=== PATIENT | female | born 1935 | race Caucasian/White ===

== ENCOUNTER 2017-11-20 09:42 | Inpatient (IN) | payer OTHER ==
[~2017-11-20] VITALS: Ht 170.2 cm; Wt 78.5 kg
[~2017-11-20 09:42] MED LIST: ACETAMINOPHEN-1 EAC1 PO; AMLODIPINE BESYL5 M1 PO; AUGMENTIN 875-1 EACH PO; CARVEDILOL3.125 M1 PO; CEPHALEXIN500 M3 PO; LEVOTHYROXINE112 MCG PO; PRADAXA75 M1 PO
--- NOTE | 2017-11-20 10:09 | ED GENERAL ADULT ---
History of Present Illness General Chief Complaint: Altered Mental Status Stated Complaint: BIBA INCREASED AMS Source: old records, EMS, friend Exam Limitations: dementia Vital Signs & Intake/Output Vital Signs & Intake/Output Vital Signs Date Time Temp Pulse Resp B/P B/P Pulse O2 O2 Flow FiO2 Mean Ox Delivery Rate 11/20 1019 96.6 60 20 133/88 91 Room Air Allergies Coded Allergies: shellfish derived (Intermediate, HIVES 08/17/17) Reconcile Medications Acetaminophen With Codeine (Acetaminophen-Cod #2 Tablet) 300 MG-15 MG TABLET 1 TAB PO TID PAIN (Reported) Amlodipine Besylate 5 MG TABLET 1 TAB PO DAILY BP (Reported) Amoxicillin/Potassium Clav (Augmentin 875-125 Tablet) 875 MG-125 MG TABLET 1 TAB PO BID CELLULITIS Carvedilol 3.125 MG TABLET 1 TAB PO BID HEART/BP (Reported) Cephalexin 500 MG CAPSULE 1 CAP PO BID ANTIBIOTIC (Reported) Dabigatran (Pradaxa) 75 MG CAPSULE 1 CAP PO BID BLOOD THINNER (Reported) Levothyroxine Sodium 112 MCG TABLET 1 TAB PO DAILY THYROID (Reported) Triage Note: 82 YO FEAMLE BIBA TO TRIAGE FOR INCRASE IN CONFUSION PER EMS. PER EMS, FAMILY STATES OT HAS A HX OF DEMENTIA BUT OVER THE PAST COUPLE OF DAYS HAS BEEN MORE CONFUSED WITH AN UNSTEADY GAIT. PT ALERT TO SELF ONLY AT THIS TIME. PT DENIES PAIN. Triage Nurses Notes Reviewed? yes HPI: Patient lives at home alone but her friends come over to assist her as much as they can. They've noticed increasing weakness and confusion over the past 2-3 days. This morning she was in the bathroom and all of a sudden I out for help, which is very unusual for her. Patient would not move so 911 Was Contacted. Patient Has Dementia and Has No Current Complaints. Patient Does Not Know Why She Is Here. Past History Travel History Traveled to [place] past 21 day No Medical History Any Pertinent Medical History? see below for history Neurological: dementia EENT: NONE Cardiovascular: AFIB, hypertension Respiratory: NONE Gastrointestinal: NONE Hepatic: NONE Renal: NONE Musculoskeletal: NONE Psychiatric: NONE Endocrine: hypothyroidism Blood Disorders: NONE Cancer(s): NONE Surgical History Surgical History: non-contributory Psychosocial History What is your primary language Syrian Tobacco Use: Cognitive Impairment ETOH Use: denies use Illicit Drug Use: denies illicit drug use Family History Hx Contributory? No Review of Systems Review of Systems Constitutional: Reports: see HPI, weakness. Physical Exam Physical Exam General Appearance: well developed/nourished, awake, mild distress Head: evidence of injury Eyes: Bilateral: PERRL, EOMI. Ears, Nose, Throat: normal pharynx, normal ENT inspection, hearing grossly normal Neck: normal inspection, supple, full range of motion, no midline tenderness Respiratory: normal breath sounds, chest non-tender, no respiratory distress, lungs clear Cardiovascular: normal peripheral pulses, irregularly irregular Gastrointestinal: normal bowel sounds, soft, non-tender Back: normal inspection Extremities: normal capillary refill, normal range of motion, bruises in various stages of healing Neurologic/Psych: no motor/sensory deficits, awake, normal gait, normal mood/ affect Skin: intact, normal color, warm/dry Lymphatic: no anterior cervical baljeet Core Measures ACS in differential dx? Yes CVA/TIA Diagnosis: No Sepsis Present: No Sepsis Focused Exam Completed? No Progress Differential Diagnoses I considered the following diagnoses in my evaluation of the patient: [AMI, ELECTROLYTE ABORMALITY, SDH] Plan of Care: Orders Procedure Date/time Status Heart Healthy Diet 11/20 D Active LACTIC ACID 11/20 1323 Active ED Holding Orders 11/20 1230 Active Admit to inpatient 11/20 1230 Active Vital Signs 11/20 1230 Active Code Status 11/20 1230 Active ARTERIAL BLOOD GAS (GEN) 11/20 1141 Complete Straight Cath 11/20 1023 Active CULTURE,URINE 11/20 1023 Active BLOOD CULTURE 11/20 1023 Active URINALYSIS 11/20 1023 Active TROPONIN LEVEL 11/20 1023 Complete LIPASE 11/20 1023 Complete LACTIC ACID 11/20 1023 Complete COMPREHENSIVE METABOLIC PANEL 11/20 1023 Complete CBC WITHOUT DIFFERENTIAL 11/20 1023 Complete AMYLASE 11/20 1023 Complete EKG 11/20 1023 Active Current Medications Sig/Angela Start time Last Medication Dose Stop Time Status Admin Sodium Chloride 1,000 ML BOLUS ONE 11/20 1145 AC (Normal Saline 0.9%) 11/20 1244 Laboratory Tests 11/20/17 1200: pH 7.42, pCO2 30 L, pO2 77 L, HCO3 19 L, ABG O2 Sat (Measured) 93.0 L, Carboxyhemoglobin 0.6 L, O2 Concentration % RA, Phlebotomy Draw Site RIGHT RADIAL 11/20/17 1030: Anion Gap 17 H, Estimated GFR 19 L, BUN/Creatinine Ratio 14.2, Glucose 157 H, Lactic Acid 5.5 H, Calcium 8.6, Total Bilirubin 0.9, AST 21, ALT 20, Alkaline Phosphatase 57, Troponin I 0.02, Total Protein 6.4, Albumin 3.4 L, Globulin 3.0 , Albumin/Globulin Ratio 1.1, Amylase 37, Lipase 77, CBC w Diff NO MAN DIFF REQ, RBC 2.99 L, MCV 99.9 H, MCH 33.5 H, MCHC 33.5, RDW 14.4, MPV 12.5 H, Gran % 79.9 H, Lymphocytes % 10.9 L, Monocytes % 8.3, Eosinophils % 0.4, Basophils % 0.5, Absolute Granulocytes 5.6, Absolute Lymphocytes 0.8 L, Absolute Monocytes 0.6, Absolute Eosinophils 0, Absolute Basophils 0 Microbiology 11/20 1148 BLOOD: Blood Culture - RECD 11/20 1023 URINE ROUT: Urine Culture - ORD 11/20 1023 BLOOD: Blood Culture - ORD Diagnostic Imaging: Viewed by Me: Radiology Read, CT Scan. Discussed w/RAD: Radiology Read, CT Scan. Radiology Impression: PATIENT: MAISHA WATTERS PRESENT AGE: 82 PATIENT ACCOUNT NO: [id number] : 34 LOCATION: [facility] ORDERING PHYSICIAN: Luis Alberto Pickens MD SERVICE DATE: 11/20/17 EXAM TYPE: CAT - CT CERV SPINE WO IV CONTRAST; CT HEAD WO IV CONTRAST EXAMINATION: CT HEAD WITHOUT CONTRAST CLINICAL INFORMATION: Fall, confusion. COMPARISON: None. TECHNIQUE: Contiguous axial imaging was performed from the skull base to vertex without intravenous administration of contrast. DLP: 595.71 mGy-cm FINDINGS: No evidence of acute intracranial hemorrhage or extra-axial fluid collection. Marked periventricular white matter hypodensities are nonspecific but most likely on the basis of chronic small vessel ischemic disease versus transependymal CSF flow. No definite acute territorial infarction. The ventricles are dilated, slightly out of proportion to the sulcal prominence. The ventricles are symmetric and there is no evidence of mass effect or mass lesion. Basal cisterns are patent. Limited views of the orbits are unremarkable. The calvarium is intact. Limited views of the paranasal sinuses are unremarkable. Mastoid air cells are well aerated and middle ear cavities are clear. Calcification of the cavernous carotid arteries. IMPRESSION: 1. No acute intracranial pathology. 2. Markedly dilated ventricles without proportional sulcal dilatation suggestive there may be some degree of normal pressure hydrocephalus. There are periventricular white matter hypodensities which could be on the basis of transependymal CSF flow versus chronic microvascular ischemic disease. ---- EXAMINATION: CT CERVICAL SPINE WITHOUT CONTRAST CLINICAL INFORMATION: Fall COMPARISON: None. TECHNIQUE: Contiguous axial imaging was performed from the skull base to the thoracic inlet without intravenous administration of contrast. DLP: 365.62 mGy-cm. FINDINGS: Vertebral bodies are normal in height and alignment. Degenerative changes are worst at the C5-C6 level with subchondral cyst formation and endplate sclerosis. Small anterior degenerative osteophytes throughout the cervical spine. Uncovertebral spurring throughout the cervical spine, worst at the C4-C5, C5-C6 and C6-C7 levels. Degenerative disc disease is moderately severe at C5-C6. Facet joints are anatomically aligned bilaterally with some scattered degenerative change. The atlantodens intervals within normal limits. The atlantooccipital junction is unremarkable. The dens process is intact. C1 and C2 are well aligned. Limited views of the lung apices demonstrate centrilobular emphysematous changes. Stable small focus of architectural distortion at the right apex measuring 0.5 cm (75/82). Stable focus of architectural distortion along the lateral right apex. There is a focal 0.5 cm area of more solid consolidation associated with this focus which appears more prominent when compared with prior studies. 1.9 cm ground-glass opacity at the medial left apex may represent volume averaging from the thoracic aortic arch which is likely coming into view at this level; however, considering the underlying centrilobular emphysematous changes, a focus of ground-glass opacity of the lung parenchyma is not excluded. IMPRESSION: 1. No radiographic evidence of acute fractures or subluxations. 2. Multiple findings within the lungs as detailed above. Dedicated chest CT is recommended, especially in this high-risk patient with emphysema. 3. Degenerative changes as above. DICTATED BY: Kim Zafar MD DATE/TIME DICTATED:11/20/171137 WOOD FLOUR MILLER:ARNOLD DATE/TIME TRANSCRIBED:11/20/171137 CONFIDENTIAL, DO NOT COPY WITHOUT APPROPRIATE AUTHORIZATION. <Electronically signed in Other Vendor System> SIGNED BY: Kmi Zafar MD 11/20/17 1222 CXR Impression: PATIENT: MAISHA WATTERS PRESENT AGE: 82 PATIENT ACCOUNT NO: [id number] : 34 LOCATION: [facility] ORDERING PHYSICIAN: Luis Alberto Pickens MD SERVICE DATE: 11/20/17 EXAM TYPE: RAD - XRY-PORTABLE CHEST XRAY EXAMINATION: XR PORTABLE CHEST CLINICAL INFORMATION: Pneumonia COMPARISON: Chest CT 11/27/2012, chest radiograph 07/03/2012 TECHNIQUE : Portable frontal view of the chest was obtained. FINDINGS: No focal consolidation, pleural effusion or pneumothorax. Cardiomegaly, increased since the prior studies. Atherosclerosis thoracic aorta. No acute osseous abnormality. IMPRESSION: No acute pulmonary process. Increased cardiomegaly. DICTATED BY: Kim Zafar MD DATE/TIME DICTATED:11/20/171117 WOOD FLOUR MILLER:ARNOLD DATE/TIME TRANSCRIBED:11/20/171117 CONFIDENTIAL, DO NOT COPY WITHOUT APPROPRIATE AUTHORIZATION. <Electronically signed in Other Vendor System> SIGNED BY: Kim Zafar MD 11/20/17 1123 Initial ED EKG: AFIB, nonspecific ST T wave chg Prior EKG: unchanged Rhythm Strip: atrial fibrillation Comments: LACTIC ACID 5.5 Departure Departure Disposition: STILL A PATIENT Condition: Guarded Clinical Impression Primary Impression: Acute renal injury Secondary Impressions: Anemia, Lactic acidosis Referrals: Ethel Gallo MD (PCP/Family) Departure Forms: Customer Survey General Discharge Information Admission Note Spoke With: Meir Christie MD Documentation of Exam: Documentation of any treatments & extenuating circumstances including Concerns Regarding Discharge (functional status, medication knowledge or non-compliance, living conditions, etc.) that warrant an admission rather than observation: [IV HYDRATION, RENAL CONSULT, NEUROLOGY CONSULT REG: HEAD CT] Critical Care Note Critical Care Note Critical Care Time: non-applicable
[2017-11-20 10:49] LABS: ABSOLUTE BASOPHIL COUNT 0 /CUMM (0.0-0.2); ABSOLUTE EOSINOPHIL COUNT 0 /CUMM (0.0-0.7); ABSOLUTE GRANULOCYTE CT 5.6 /CUMM (1.4-6.5); ABSOLUTE LYMPH COUNT 0.8 /CUMM (1.2-3.4); ABSOLUTE MONOCYTE COUNT 0.6 /CUMM (0.10-0.60); BASOPHIL % 0.5 % (0.0-2.0); EOSINOPHIL % 0.4 % (0-5); GRANULOCYTE % 79.9 % (42.2-75.2); HEMATOCRIT 29.9 % (37-47); MEAN CORPUSCULAR HGB 33.5 PG (27.0-31.0); MEAN CORPUSCULAR HGB CONC 33.5 G/DL (33.0-37.0); MEAN CORPUSCULAR VOLUME 99.9 FL (81.0-99.0); MEAN PLATELET VOLUME 12.5 FL (7.4-10.4); PLATELET COUNT 97 /CUMM (130-400); RBC DISTRIBUTION WIDTH 14.4 % (11.5-14.5); RED BLOOD CELL CT 2.99 /CUMM (4.20-5.40)
--- NOTE | 2017-11-20 11:23 | RADIOLOGY REPORT ---
EXAMINATION: XR PORTABLE CHEST CLINICAL INFORMATION: Pneumonia COMPARISON: Chest CT 11/27/2012, chest radiograph 07/03/2012 TECHNIQUE: Portable frontal view of the chest was obtained. FINDINGS: No focal consolidation, pleural effusion or pneumothorax. Cardiomegaly, increased since the prior studies. Atherosclerosis thoracic aorta. No acute osseous abnormality. IMPRESSION: No acute pulmonary process. Increased cardiomegaly.
--- NOTE | 2017-11-20 12:22 | CT SCAN REPORT ---
EXAMINATION: CT HEAD WITHOUT CONTRAST CLINICAL INFORMATION: Fall, confusion. COMPARISON: None. TECHNIQUE: Contiguous axial imaging was performed from the skull base to vertex without intravenous administration of contrast. DLP: 595.71 mGy-cm FINDINGS: No evidence of acute intracranial hemorrhage or extra-axial fluid collection. Marked periventricular white matter hypodensities are nonspecific but most likely on the basis of chronic small vessel ischemic disease versus transependymal CSF flow. No definite acute territorial infarction. The ventricles are dilated, slightly out of proportion to the sulcal prominence. The ventricles are symmetric and there is no evidence of mass effect or mass lesion. Basal cisterns are patent. Limited views of the orbits are unremarkable. The calvarium is intact. Limited views of the paranasal sinuses are unremarkable. Mastoid air cells are well aerated and middle ear cavities are clear. Calcification of the cavernous carotid arteries. IMPRESSION: 1. No acute intracranial pathology. 2. Markedly dilated ventricles without proportional sulcal dilatation suggestive there may be some degree of normal pressure hydrocephalus. There are periventricular white matter hypodensities which could be on the basis of transependymal CSF flow versus chronic microvascular ischemic disease. EXAMINATION: CT CERVICAL SPINE WITHOUT CONTRAST CLINICAL INFORMATION: Fall COMPARISON: None. TECHNIQUE: Contiguous axial imaging was performed from the skull base to the thoracic inlet without intravenous administration of contrast. DLP: 365.62 mGy-cm. FINDINGS: Vertebral bodies are normal in height and alignment. Degenerative changes are worst at the C5-C6 level with subchondral cyst formation and endplate sclerosis. Small anterior degenerative osteophytes throughout the cervical spine. Uncovertebral spurring throughout the cervical spine, worst at the C4-C5, C5-C6 and C6-C7 levels. Degenerative disc disease is moderately severe at C5-C6. Facet joints are anatomically aligned bilaterally with some scattered degenerative change. The atlantodens intervals within normal limits. The atlantooccipital junction is unremarkable. The dens process is intact. C1 and C2 are well aligned. Limited views of the lung apices demonstrate centrilobular emphysematous changes. Stable small focus of architectural distortion at the right apex measuring 0.5 cm (75/82). Stable focus of architectural distortion along the lateral right apex. There is a focal 0.5 cm area of more solid consolidation associated with this focus which appears more prominent when compared with prior studies. 1.9 cm ground-glass opacity at the medial left apex may represent volume averaging from the thoracic aortic arch which is likely coming into view at this level; however, considering the underlying centrilobular emphysematous changes, a focus of ground-glass opacity of the lung parenchyma is not excluded. IMPRESSION: 1. No radiographic evidence of acute fractures or subluxations. 2. Multiple findings within the lungs as detailed above. Dedicated chest CT is recommended, especially in this high-risk patient with emphysema. 3. Degenerative changes as above.
--- NOTE | 2017-11-20 14:09 | History & Physical ---
Shanta AREVALO,Yoselyn 11/20/17 1408: General Information and HPI MD Statement: I have seen and personally examined MAISHA WATTERS and documented this H&P. The patient is a 82 year old F who presented with a patient stated chief complaint of []. 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 Patient lives with her son friends as he was in penitentiary. She is missing him and becomes combative occasionally. Speaking with family it is evident that she was very active taking care of herself including daily activities. She acutely bacame confused in the restroom today with weakness in her legs and accidentally lost urine at that time. As she appeared more weak and confused family friends got concerned and brought her here. She usually not a complainer. In the ER she denies any chest pain, shortness of breath, nausea, vomiting, diarrhea, fevers. She denies any problems with walking, urination. She actively smokers a pack per day for the past 40yrs. Meds Pradaxa 75mg BID, Coreg 3.125mg BID, Levothyroxine 112mcg daily Allergies/Medications Allergies: Coded Allergies: shellfish derived (Intermediate, HIVES 08/17/17) Home Med list Acetaminophen With Codeine (Acetaminophen-Cod #2 Tablet) 300 MG-15 MG TABLET 1 TAB PO TID PAIN (Reported) Carvedilol 3.125 MG TABLET 1 TAB PO BID HEART/BP (Reported) Dabigatran (Pradaxa) 75 MG CAPSULE 1 CAP PO BID BLOOD THINNER (Reported) Levothyroxine Sodium 112 MCG TABLET 1 TAB PO DAILY THYROID (Reported) Compliance With Home Meds: GOOD Past History Travel History Traveled to [place] past 21 day No Medical History Neurological: dementia EENT: NONE Cardiovascular: AFIB, hypertension Respiratory: NONE Gastrointestinal: NONE Hepatic: NONE Renal: NONE Musculoskeletal: NONE Psychiatric: NONE Endocrine: hypothyroidism Blood Disorders: NONE Cancer(s): NONE Isolation History: Standard Surgical History Surgical History: non-contributory Past Family/Social History Psychosocial History Where do you live? Home Who Do You Live With? child friend Services at Home: None Primary Language: Canadian Smoking Status: Current Everyday Smoker ETOH Use: denies use Illicit Drug Use: denies illicit drug use Functional Ability ADLs Independent: dressing, eating, toileting, bathing. Ambulation: independent IADLs Needs Assist: shopping, housework, finances, food prep, telephone, transportation, medication admin. Review of Systems Review of Systems Constitutional: Reports: see HPI. EENTM: Reports: see HPI. Cardiovascular: Reports: see HPI. Respiratory: Reports: see HPI. GI: Reports: see HPI. Exam & Diagnostic Data Last 24 Hrs of Vital Signs/I&O Vital Signs Date Time Temp Pulse Resp B/P B/P Pulse O2 O2 Flow FiO2 Mean Ox Delivery Rate 11/20 1254 96.6 64 20 110/76 98 Room Air 11/20 1019 96.6 60 20 133/88 91 Room Air Intake & Output 11/20 1600 11/20 0800 11/20 0000 Intake Total 0 Output Total Balance 0 Intake, Oral 0 Physical Exam General Appearance Alert, Oriented X3, Cooperative, very dry skin Skin bruising present on right side of abdomen Skin Temp/Moisture Exam: Warm/Dry HEENT Atraumatic, PERRLA, EOMI Cardiovascular Normal S1, Normal S2 Lungs Clear to Auscultation, Normal Air Movement Abdomen Normal Bowel Sounds, Soft, No Tenderness Body Front and Back (Adult) 1) bruising present Last 24 Hrs of Labs/Kris: Laboratory Tests 11/20/171951: Lactic Acid 2.8 H, PT 49.4 *H, INR 4.46 *H, APTT 85 H, CBC w Diff NO MAN DIFF REQ, RBC 2.33 L, MCV 101.8 H, MCH 33.2 H, MCHC 32.7 L, RDW 14.5, MPV 12.7 H , Gran % 75.4 H, Lymphocytes % 13.3 L, Monocytes % 10.5 H, Eosinophils % 0.3, Basophils % 0.5, Absolute Granulocytes 5.9, Absolute Lymphocytes 1.0 L, Absolute Monocytes 0.8 H, Absolute Eosinophils 0, Absolute Basophils 0 11/20/17 1610: Lactic Acid 3.0 H, CBC w Diff NO MAN DIFF REQ, RBC 2.60 L, MCV 100.4 H, MCH 33.2 H, MCHC 33.1, RDW 14.4, MPV 12.5 H, Gran % 77.4 H, Lymphocytes % 12.6 L , Monocytes % 9.6 H, Eosinophils % 0.3, Basophils % 0.1, Absolute Granulocytes 6.4, Absolute Lymphocytes 1.1 L, Absolute Monocytes 0.8 H, Absolute Eosinophils 0, Absolute Basophils 0 11/20/17 1330: Urinalysis LIGHT H, Urine Color YEL, Urine Clarity HAZY H, Urine pH 6.0, Ur Specific Deposit 1.025, Urine Protein 30 H, Urine Ketones TRACE H, Urine Nitrite NEG, Urine Bilirubin NEG, Urine Urobilinogen 0.2, Ur Leukocyte Esterase NEG, Ur Microscopic SEDIMENT EXAMINED, Urine WBC 5-10 H, Ur Epithelial Cells MANY H, Urine Bacteria MANY H, Urine Mucus MOD H, Urine Hemoglobin NEG, Urine Glucose NEG 11/20/17 1200: pH 7.42, pCO2 30 L, pO2 77 L, HCO3 19 L, ABG O2 Sat (Measured) 93.0 L, Carboxyhemoglobin 0.6 L, O2 Concentration % RA, Phlebotomy Draw Site RIGHT RADIAL 11/20/17 1030: Anion Gap 17 H, Estimated GFR 19 L, BUN/Creatinine Ratio 14.2, Glucose 157 H, Lactic Acid 5.5 H, Calcium 8.6, Total Bilirubin 0.9, AST 21, ALT 20, Alkaline Phosphatase 57, Troponin I 0.02, Total Protein 6.4, Albumin 3.4 L, Globulin 3.0 , Albumin/Globulin Ratio 1.1, Amylase 37, Lipase 77, TSH 80.400 H, Free T4 0.07 L, CBC w Diff NO MAN DIFF REQ, RBC 2.99 L, MCV 99.9 H, MCH 33.5 H, MCHC 33.5 , RDW 14.4, MPV 12.5 H, Gran % 79.9 H, Lymphocytes % 10.9 L, Monocytes % 8.3, Eosinophils % 0.4, Basophils % 0.5, Absolute Granulocytes 5.6, Absolute Lymphocytes 0.8 L, Absolute Monocytes 0.6, Absolute Eosinophils 0, Absolute Basophils 0 Microbiology 11/20 1940 BLOOD: Blood Culture - RECD 11/20 1518 URINE ROUT: Urine Culture - CAN Cancelled: Cancelled via OE: Per MD Decision 11/20 1330 URINE ROUT: Urine Culture - RECD 11/20 1148 BLOOD: Blood Culture - RECD Diagnostic Data EKG Results A.fib with HR 60. Irregularly irregular with LAFB Assessment/Plan Assessment: Patient is a elderly 82 YO F with PMH significant for A.fib on pradaxa, GI bleed , 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 She denies any recent falls, cough, reports compliance with medications. she did have abdominal pain since the past 1day. VS stable, afebrile. PE significant for Tenderness in the RUQ region, mild edmea of the legs, very very dry skin. Labs are significant for H&H of 07/14 with MCV 99, platelets 97, BUN/Cr 24/2.4, Trop 0.02, TSH of 80, free T4 0.07. Imaging did show Large hemtoma involving the anterior & lateral chest wall extending to the pelvis with a depth of 6cm. Last ECHO in the system is 2002 with good EF 55%, LVH. Problem list Acute hematoma into the anteriror abdominal wall musculature - ? fall vs cough related vs straining due to constipation Lacitc acidosis MITRA on CKD Acute blood loss anemia A.fib Primary Hypothyrodism Acute Abdominal wall hematoma in the setting of anticoagulation Patient is not a good historian. Possiblities are she could have a fall (less likely on ventral side), increased cough (chronic smoker - smoker cough) or constipated straining causing this condition. She is hemodynamically stable. She had A.fib with CHADVaSc score of 4. * Type and cross match * Transfuse 2 untis of blood * Gen surgery consulted - no role of surgery given it is within the muscular wall Lacitic acidosis with MITRA on CKD Patient did have elevated lactic probably from internal bleeding. Agressively hydrated. Acute worsening of renal function could be from dehydration or volume depletion. * IV fluids * Recheck BEP in am Hypothyroidism She is hypothermic with dry skin, reports generalized weakness and fatigue. She did have anemia. She is reportedly compliant with medications - it is possible she might have difficulty absorbing levothyroxine. Her TSH is 80 with T4 of 0.07. She could have constipation secondary to this leading to hematoma while straining. Another possiblity is she might have acquired VonWillibrand disease from hypothyrodism that could have caused this but it is associated with mucosal bleeding. * Repeat TSH and free T4 * Lipid panel * Selinium level * Increase levothyroxine dose after ruling out ACS * Endo consult if mental status continuous to worsen A.fib Patient was on pradaxa. CHADVaSC score of 4. Follows . EKG shows A.fib with rate control. spoke with . * Recommended to discotinue Dabigatran in view of her bleeding * If hemodynamically unstable, consider for reversal. * Otherwise follow off anticoagulation * Continue Coreg with holding parameters DVT prophylaxis ALPS Code status full code As Ranked By This Provider Problem List: 1. Lactic acidosis 2. Acute renal injury 3. Hypothyroidism 4. Hematoma Core Measures/Misc (06/03) Acute Coronary Syndrome ACS Diagnosis: No Congestive Heart Failure Congestive Heart Failure Diagnosis No Cerebrovascular Accident CVA/TIA Diagnosis: No VTE (View Protocol) VTE Risk Factors Acute Medical Illness No Mechanical VTE Prophylaxis d/t Medical Contraindication No VTE Pharm Prophylaxis d/t Bleeding (Active) Sepsis (View protocol) Sepsis Present: No Azeb Marinelli MD 11/20/17 1555: Attending MD Review Statement Attending Statement Attending MD Statement: examined this patient, discuss w/resident/PA/HORSER UP, agreed w/resident/PA/HORSER UP, discussed with family, reviewed EMR data (avail), discussed with nursing, reviewed images, amended to note Attending Assessment/Plan: 82-year-old female with past history significant for A. fib, hypothyroidism, dementia, hypertension who was brought in by ambulance because patient was feeling very weak and somewhat confused. Patient son is in penitentiary and she currently is living with one of his son's friend along with that person's girlfriend. Apparently patient got agitated she also felt weak more than usual and appeared somewhat confused. This morning she was in the bathroom and called out for help. She would not get out of the bathroom therefore 911 was called therefore she was brought into the emergency room. In the ER patient was found to have high lactate levels, drop in H&H and acute renal failure. She was complaining of some right-sided abdominal pain and she was very tender upon palpation. There was also some bruising going on on her abdomen. Vital Signs Date Time Temp Pulse Resp B/P B/P Pulse O2 O2 Flow FiO2 Mean Ox Delivery Rate 11/20 1254 96.6 64 20 110/76 98 Room Air 11/20 1019 96.6 60 20 133/88 91 Room Air on exam; aox2, nad. cv; s1,s2, irregular. resp; clear abd; soft, tender in right uq, right flank, bs+, + big bruise on abd wall. ext; no edema. Laboratory Tests 11/20 11/20 1330 1200 Blood Gas pH (7.35 - 7.45 PH) 7.42 pCO2 (35 - 45 TORR) 30 L pO2 (80 - 100 TORR) 77 L HCO3 (21 - 28 MEQ/L) 19 L ABG O2 Sat (Measured) (>96.0 %) 93.0 L Carboxyhemoglobin (1.5 - 5.0 %) 0.6 L O2 Concentration % RA Miscellaneous Phlebotomy Draw Site RIGHT RADIAL Urines Urinalysis LIGHT H Urine Color (YEL,AMB,STR) YEL Urine Clarity (CLEAR) HAZY H Urine pH (5.0 - 8.0) 6.0 Ur Specific Deposit (1.001 - 1.035) 1.025 Urine Protein (NEG,<30 MG/DL) 30 H Urine Ketones (NEG) TRACE H Urine Nitrite (NEG) NEG Urine Bilirubin (NEG) NEG Urine Urobilinogen (0.1 - 1.0 EU/dl) 0.2 Ur Leukocyte Esterase (NEG) NEG Ur Microscopic SEDIMENT EXAMINED Urine WBC (0 - 2 /HPF) 5-10 H Ur Epithelial Cells (NONE,FEW) MANY H Urine Bacteria (NEG/NONE) MANY H Urine Mucus (FEW,NONE) MOD H Urine Hemoglobin (NEG) NEG Urine Glucose (N MG/DL) NEG 11/20 1030 Chemistry Sodium (137 - 145 mmol/L) 146 H Potassium (3.5 - 5.1 mmol/L) 4.0 Chloride (98 - 107 mmol/L) 109 H Carbon Dioxide (22 - 30 mmol/L) 20 L Anion Gap (5 - 16) 17 H BUN (7 - 17 mg/dL) 34 H Creatinine (0.5 - 1.0 mg/dL) 2.4 H Estimated GFR (>60 ml/min) 19 L BUN/Creatinine Ratio (7 - 25 %) 14.2 Glucose (65 - 99 mg/dL) 157 H Lactic Acid (0.7 - 2.1 mmol/L) 5.5 H Calcium (8.4 - 10.2 mg/dL) 8.6 Total Bilirubin (0.2 - 1.3 mg/dL) 0.9 AST (14 - 36 U/L) 21 ALT (9 - 52 U/L) 20 Alkaline Phosphatase (<127 U/L) 57 Troponin I (< 0.11 ng/ml) 0.02 Total Protein (6.3 - 8.2 g/dL) 6.4 Albumin (3.5 - 5.0 g/dL) 3.4 L Globulin (1.9 - 4.2 gm/dL) 3.0 Albumin/Globulin Ratio (1.1 - 2.2 %) 1.1 Amylase (30 - 110 U/L) 37 Lipase (23 - 300 U/L) 77 TSH (0.270 - 4.200 uIU/mL) Pending Hematology CBC w Diff NO MAN DIFF REQ WBC (4.8 - 10.8 /CUMM) 7.0 RBC (4.20 - 5.40 /CUMM) 2.99 L Hgb (12.0 - 16.0 G/DL) 10.0 L Hct (37 - 47 %) 29.9 L MCV (81.0 - 99.0 FL) 99.9 H MCH (27.0 - 31.0 PG) 33.5 H MCHC (33.0 - 37.0 G/DL) 33.5 RDW (11.5 - 14.5 %) 14.4 Plt Count (130 - 400 /CUMM) 97 L MPV (7.4 - 10.4 FL) 12.5 H Gran % (42.2 - 75.2 %) 79.9 H Lymphocytes % (20.5 - 51.1 %) 10.9 L Monocytes % (1.7 - 9.3 %) 8.3 Eosinophils % (0 - 5 %) 0.4 Basophils % (0.0 - 2.0 %) 0.5 Absolute Granulocytes (1.4 - 6.5 /CUMM) 5.6 Absolute Lymphocytes (1.2 - 3.4 /CUMM) 0.8 L Absolute Monocytes (0.10 - 0.60 /CUMM) 0.6 Absolute Eosinophils (0.0 - 0.7 /CUMM) 0 Absolute Basophils (0.0 - 0.2 /CUMM) 0 All of her imaging studies reviewed and CT head and CT cervical spine do not show any fractures. There is question of normal pressure hydrocephalus. Chest x-ray does not show any infiltrate. A/P; 82-year-old female with past history significant for A. fib, hypothyroidism , dementia, hypertension admitted with altered mental state, generalized weakness, acute blood loss anemia and acute renal failure. Patient also has high lactate levels. Patient admitted to medicine floor. We have ordered a CT abdomen and pelvis and the radiologist spoke with the housestaff with information that there is a large hematoma in the abdomenal wall. Official report is not in the computer yet. At this point patient's Pradaxa tracy be held. cardiology consult to help guide reversal if indicated. H& H will be monitored closely. Please consult surgery. If patient needs transfusion should be transfused therefore please type and cross and make sure patient has 2 large-bore IV lines. Will continue the patient on her levothyroxine and check thyroid function. Patient will be hydrated with IV fluids. Lactate will be trended. We'll continue the patient on Coreg with holding parameters. DVT prophylaxis: ALPS. Full code. Discussed with patient's son's friend at bedside.
[2017-11-20 15:40] VITALS: BP 118/80
--- NOTE | 2017-11-20 16:13 | CT SCAN REPORT ---
EXAMINATION: CT ABDOMEN AND PELVIS WITHOUT CONTRAST CLINICAL INFORMATION: Right upper quadrant pain. COMPARISON: None TECHNIQUE: Multidetector volumetric imaging was performed from the superior aspect of the liver through the pubic symphysis. Sagittal and coronal reformatted images were obtained on the technologist's workstation. DLP: 527.23 mGy-cm FINDINGS: LUNG BASES: There is a small layering right pleural effusion. Minimal dependent atelectasis subpleural lung and right lung base as well. There is a small pericardial effusion at the apex of the left ventricle. This measures 1 cm transverse axial image 3 (2). LIVER, GALLBLADDER, AND BILIARY TREE: The liver is normal in size, shape, and attenuation. No focal hepatic lesion or biliary ductal dilatation is present. The gallbladder is unremarkable with no evidence of radiopaque gallstones, gallbladder wall thickening, or obvious pericholecystic inflammatory changes. PANCREAS: Unremarkable. SPLEEN: Unremarkable. ADRENAL GLANDS: Fullness of the left adrenal gland without distinct nodule. KIDNEYS AND URETERS: There is a 1 cm cortical cyst at the mid pole cortex of the left kidney. In the lower pole left kidney, there is a 5 mm nonobstructive renal stone. There is no stone in the right kidney. There are no ureteral calculi and no hydronephrosis. BLADDER: Bladder is empty GASTROINTESTINAL TRACT: There is marked diverticulosis of the sigmoid colon and descending colon with scattered diverticula throughout the colon. There is no diverticulitis. There is no acute abnormality of the bowel. No bowel obstruction. No bowel wall thickening or edema. There is a large collection of stool at the rectum sigmoid without bowel wall edema or evidence of stercoral colitis. The appendix is normal. The small bowel loops are unremarkable. MESENTERY: A small amount of free fluid in the cul-de-sac. There is no inflammation. There is no free air. ABDOMINAL WALL: There is a large muscular wall hematoma involving the anterior and lateral abdominal wall extending into the lower chest anterior chest wall. The hematoma is seen from the lower anterior right chest over the lower anterior right ribs and extends along the right anterior and lateral abdominal wall into the pelvis. This has mixed attenuation. The large collection does bulge the mid anterior abdominal wall to a depth of 6 cm. There is associated edema in the subcutaneous tissue over the hematoma. There is no air or foreign body involving the hematoma. LYMPH NODES: There is no bulky adenopathy. VASCULAR: There is a saccular aneurysm is present of the distal aorta just proximal to the bifurcation measuring 4.2 cm AP. There are diffuse atherosclerotic vascular wall calcifications of aorta and iliac vessels. PELVIC VISCERA: The uterus is anteverted. In the left adnexa, there is an ovarian cystic lesion measuring 2.7 x 1.9 cm with a density measurement of 0 Hounsfield units, fluid density. OSSEOUS STRUCTURES: Multilevel degenerative spondylosis of the spine with vacuum disc phenomenon, endplate spurs and facet joint arthrosis. IMPRESSION: 1. Large abdominal wall hematoma involving the anterior lateral right abdominal wall extending from the right lower chest to the pelvis. 2. Small dependent right pleural effusion with minimal basilar atelectasis at the dependent right lung. 3. Nonobstructive 5 mm stone lower pole left kidney. 4. A 4.2 cm saccular abdominal aortic aneurysm with diffuse atherosclerotic vascular wall calcifications of the aorta and iliac vessels. 5. Marked diverticulosis of the colon without acute change of bowel. There is a large collection of stool at the rectum sigmoid. This critical result was discussed with Dr. Yoselyn Womack on 11/20/2017 at 3:10 PM and it was ascertained that the content and urgency of the report was understood at the time of direct communication.
[2017-11-20 17:02] LABS: ABSOLUTE BASOPHIL COUNT 0 /CUMM (0.0-0.2); ABSOLUTE EOSINOPHIL COUNT 0 /CUMM (0.0-0.7); ABSOLUTE GRANULOCYTE CT 6.4 /CUMM (1.4-6.5); ABSOLUTE LYMPH COUNT 1.1 /CUMM (1.2-3.4); ABSOLUTE MONOCYTE COUNT 0.8 /CUMM (0.10-0.60); BASOPHIL % 0.1 % (0.0-2.0); EOSINOPHIL % 0.3 % (0-5); GRANULOCYTE % 77.4 % (42.2-75.2); HEMATOCRIT 26.1 % (37-47); MEAN CORPUSCULAR HGB 33.2 PG (27.0-31.0); MEAN CORPUSCULAR HGB CONC 33.1 G/DL (33.0-37.0); MEAN CORPUSCULAR VOLUME 100.4 FL (81.0-99.0); MEAN PLATELET VOLUME 12.5 FL (7.4-10.4); PLATELET COUNT 81 /CUMM (130-400); RBC DISTRIBUTION WIDTH 14.4 % (11.5-14.5); WHITE BLOOD CELL COUNT 8.3 /CUMM (4.8-10.8)
[2017-11-20 20:46] LABS: ABSOLUTE BASOPHIL COUNT 0 /CUMM (0.0-0.2); ABSOLUTE EOSINOPHIL COUNT 0 /CUMM (0.0-0.7); ABSOLUTE GRANULOCYTE CT 5.9 /CUMM (1.4-6.5); ABSOLUTE MONOCYTE COUNT 0.8 /CUMM (0.10-0.60); BASOPHIL % 0.5 % (0.0-2.0); EOSINOPHIL % 0.3 % (0-5); GRANULOCYTE % 75.4 % (42.2-75.2); HEMATOCRIT 23.7 % (37-47); MEAN CORPUSCULAR HGB 33.2 PG (27.0-31.0); MEAN CORPUSCULAR HGB CONC 32.7 G/DL (33.0-37.0); MEAN CORPUSCULAR VOLUME 101.8 FL (81.0-99.0); MEAN PLATELET VOLUME 12.7 FL (7.4-10.4); PLATELET COUNT 74 /CUMM (130-400); RBC DISTRIBUTION WIDTH 14.5 % (11.5-14.5); RED BLOOD CELL CT 2.33 /CUMM (4.20-5.40); WHITE BLOOD CELL COUNT 7.8 /CUMM (4.8-10.8)
[2017-11-20 20:55] LABS: PTT 85 SEC (25-37)
[2017-11-20 21:07] LABS: PT 49.4 SEC (9.4-12.5)
[2017-11-20 22:05] VITALS: BP 100/65
[2017-11-20 22:41] VITALS: BP 115/70
--- NOTE | 2017-11-21 00:30 | Cons- General Surgery ---
General Information and HPI Allergies/Medications Allergies: Coded Allergies: shellfish derived (Intermediate, HIVES 08/17/17) Home Med List: Acetaminophen With Codeine (Acetaminophen-Cod #2 Tablet) 300 MG-15 MG TABLET 1 TAB PO TID PAIN (Reported) Carvedilol 3.125 MG TABLET 1 TAB PO BID HEART/BP (Reported) Dabigatran (Pradaxa) 75 MG CAPSULE 1 CAP PO BID BLOOD THINNER (Reported) Levothyroxine Sodium 112 MCG TABLET 1 TAB PO DAILY THYROID (Reported) Current Medications: I rev Current Medications Sig/Angela Start time Last Medication Dose Route Stop Time Status Admin Carvedilol 3.125 MG BID 11/20 2199 AC 11/20 PO 2028 Dabigatran 75 MG BID 11/20 2199 CAN PO Levothyroxine Sodium 0.112 MG DAILY AC 11/21 0700 AC PO Sodium Chloride 1,000 ML Q13H 11/20 1400 AC IV Sodium Chloride 1,000 ML BOLUS ONE 11/20 1145 DC / IV 11/20 1244 1635 Sodium Chloride 1,000 ML BOLUS ONE 11/20 1130 DC 11/20 IV 11/20 1229 1143 Past History Medical History Neurological: dementia EENT: NONE Cardiovascular: AFIB, hypertension Respiratory: NONE Gastrointestinal: NONE Hepatic: NONE Renal: NONE Musculoskeletal: NONE Psychiatric: NONE Endocrine: hypothyroidism Blood Disorders: NONE Cancer(s): NONE CONSUMER MARKETING ANALYST/Reproductive: NONE Psychosocial History Where Do You Live? Home Who Do You Live With? child friend Services at Home: None Primary Language: Moroccan Smoking Status: Current Everyday Smoker ETOH Use: denies use Illicit Drug Use: denies illicit drug use Functional Ability ADLs Independent: dressing, eating, toileting, bathing. Ambulation: independent IADLs Needs Assist: shopping, housework, finances, food prep, telephone, transportation, medication admin. Exam & Diagnostic Data Vital Signs and I&O I rev Vital Signs Date Time Temp Pulse Resp B/P B/P Pulse O2 O2 Flow FiO2 Mean Ox Delivery Rate 11/20 2241 98.7 63 18 115/70 98 Room Air 11/20 2029 66 126/78 11/20 1540 98.1 66 18 118/80 100 Room Air 11/20 1254 96.6 64 20 110/76 98 Room Air 11/20 1019 96.6 60 20 133/88 91 Room Air I rev Intake & Output 11/21 0000 11/20 1600 11/20 0811/20 0000 11/19 1600 Intake Total 800 0 Output Total Balance 800 0 Intake, Oral 800 0 Patient 173 lb Weight Last 24 Hours of Labs: I rev Laboratory Tests 11/20 1610 Chemistry Lactic Acid (0.7 - 2.1 mmol/L) 2.8 H 3.0 H Coagulation PT (9.4 - 12.5 SEC) 49.4 *H INR (0.90 - 1.19) 4.46 *H APTT (25 - 37 SEC) 85 H Hematology CBC w Diff NO MAN DIFF REQ NO MAN DIFF REQ WBC (4.8 - 10.8 /CUMM) 7.8 8.3 RBC (4.20 - 5.40 /CUMM) 2.33 L 2.60 L Hgb (12.0 - 16.0 G/DL) 7.7 L 8.6 L Hct (37 - 47 %) 23.7 L 26.1 L MCV (81.0 - 99.0 FL) 101.8 H 100.4 H MCH (27.0 - 31.0 PG) 33.2 H 33.2 H MCHC (33.0 - 37.0 G/DL) 32.7 L 33.1 RDW (11.5 - 14.5 %) 14.5 14.4 Plt Count (130 - 400 /CUMM) 74 L 81 L MPV (7.4 - 10.4 FL) 12.7 H 12.5 H Gran % (42.2 - 75.2 %) 75.4 H 77.4 H Lymphocytes % (20.5 - 51.1 %) 13.3 L 12.6 L Monocytes % (1.7 - 9.3 %) 10.5 H 9.6 H Eosinophils % (0 - 5 %) 0.3 0.3 Basophils % (0.0 - 2.0 %) 0.5 0.1 Absolute Granulocytes (1.4 - 6.5 /CUMM) 5.9 6.4 Absolute Lymphocytes (1.2 - 3.4 /CUMM) 1.0 L 1.1 L Absolute Monocytes (0.10 - 0.60 /CUMM) 0.8 H 0.8 H Absolute Eosinophils (0.0 - 0.7 /CUMM) 0 0 Absolute Basophils (0.0 - 0.2 /CUMM) 0 0 11/20 11/20 1330 1200 Blood Gas pH (7.35 - 7.45 PH) 7.42 pCO2 (35 - 45 TORR) 30 L pO2 (80 - 100 TORR) 77 L HCO3 (21 - 28 MEQ/L) 19 L ABG O2 Sat (Measured) (>96.0 %) 93.0 L Carboxyhemoglobin (1.5 - 5.0 %) 0.6 L O2 Concentration % RA Miscellaneous Phlebotomy Draw Site RIGHT RADIAL Urines Urinalysis LIGHT H Urine Color (YEL,AMB,STR) YEL Urine Clarity (CLEAR) HAZY H Urine pH (5.0 - 8.0) 6.0 Ur Specific [place] (1.001 - 1.035) 1.025 Urine Protein (NEG,<30 MG/DL) 30 H Urine Ketones (NEG) TRACE H Urine Nitrite (NEG) NEG Urine Bilirubin (NEG) NEG Urine Urobilinogen (0.1 - 1.0 EU/dl) 0.2 Ur Leukocyte Esterase (NEG) NEG Ur Microscopic SEDIMENT EXAMINED Urine WBC (0 - 2 /HPF) 5-10 H Ur Epithelial Cells (NONE,FEW) MANY H Urine Bacteria (NEG/NONE) MANY H Urine Mucus (FEW,NONE) MOD H Urine Hemoglobin (NEG) NEG Urine Glucose (N MG/DL) NEG 11/20 1030 Chemistry Sodium (137 - 145 mmol/L) 146 H Potassium (3.5 - 5.1 mmol/L) 4.0 Chloride (98 - 107 mmol/L) 109 H Carbon Dioxide (22 - 30 mmol/L) 20 L Anion Gap (5 - 16) 17 H BUN (7 - 17 mg/dL) 34 H Creatinine (0.5 - 1.0 mg/dL) 2.4 H Estimated GFR (>60 ml/min) 19 L BUN/Creatinine Ratio (7 - 25 %) 14.2 Glucose (65 - 99 mg/dL) 157 H Lactic Acid (0.7 - 2.1 mmol/L) 5.5 H Calcium (8.4 - 10.2 mg/dL) 8.6 Total Bilirubin (0.2 - 1.3 mg/dL) 0.9 AST (14 - 36 U/L) 21 ALT (9 - 52 U/L) 20 Alkaline Phosphatase (<127 U/L) 57 Troponin I (< 0.11 ng/ml) 0.02 Total Protein (6.3 - 8.2 g/dL) 6.4 Albumin (3.5 - 5.0 g/dL) 3.4 L Globulin (1.9 - 4.2 gm/dL) 3.0 Albumin/Globulin Ratio (1.1 - 2.2 %) 1.1 Amylase (30 - 110 U/L) 37 Lipase (23 - 300 U/L) 77 TSH (0.270 - 4.200 uIU/mL) 80.400 H Free T4 (0.85 - 1.93 ng/dL) 0.07 L Hematology CBC w Diff NO MAN DIFF REQ WBC (4.8 - 10.8 /CUMM) 7.0 RBC (4.20 - 5.40 /CUMM) 2.99 L Hgb (12.0 - 16.0 G/DL) 10.0 L Hct (37 - 47 %) 29.9 L MCV (81.0 - 99.0 FL) 99.9 H MCH (27.0 - 31.0 PG) 33.5 H MCHC (33.0 - 37.0 G/DL) 33.5 RDW (11.5 - 14.5 %) 14.4 Plt Count (130 - 400 /CUMM) 97 L MPV (7.4 - 10.4 FL) 12.5 H Gran % (42.2 - 75.2 %) 79.9 H Lymphocytes % (20.5 - 51.1 %) 10.9 L Monocytes % (1.7 - 9.3 %) 8.3 Eosinophils % (0 - 5 %) 0.4 Basophils % (0.0 - 2.0 %) 0.5 Absolute Granulocytes (1.4 - 6.5 /CUMM) 5.6 Absolute Lymphocytes (1.2 - 3.4 /CUMM) 0.8 L Absolute Monocytes (0.10 - 0.60 /CUMM) 0.6 Absolute Eosinophils (0.0 - 0.7 /CUMM) 0 Absolute Basophils (0.0 - 0.2 /CUMM) 0 Assessment/Plan Assessment/Plan Rectus sheath hematoma, involving obliques too, bruising, starting H/H prob dry, now reflecting hydration, ARF, does not appear to be actively bleeding. Consult Acknowledgment - Thank you for your consult request.
[2017-11-21 02:30] VITALS: BP 114/68
[2017-11-21 04:16] LABS: ABSOLUTE BASOPHIL COUNT 0 /CUMM (0.0-0.2); ABSOLUTE EOSINOPHIL COUNT 0.1 /CUMM (0.0-0.7); ABSOLUTE LYMPH COUNT 1.3 /CUMM (1.2-3.4); EOSINOPHIL % 1.1 % (0-5)
[2017-11-21 04:30] LABS: ABSOLUTE GRANULOCYTE CT 5.8 /CUMM (1.4-6.5); BASOPHIL % 0.5 % (0.0-2.0); GRANULOCYTE % 70.6 % (42.2-75.2); HEMATOCRIT 28.1 % (37-47); MEAN CORPUSCULAR HGB 32.5 PG (27.0-31.0); MEAN CORPUSCULAR HGB CONC 33.6 G/DL (33.0-37.0); MEAN CORPUSCULAR VOLUME 96.8 FL (81.0-99.0); MEAN PLATELET VOLUME 11.9 FL (7.4-10.4); PLATELET COUNT 72 /CUMM (130-400); RBC DISTRIBUTION WIDTH 16.5 % (11.5-14.5); WHITE BLOOD CELL COUNT 8.3 /CUMM (4.8-10.8)
[2017-11-21 06:39] VITALS: BP 123/64
--- NOTE | 2017-11-21 07:52 | PN- Housestaff ---
Shanta AREVALO,Yoselyn 11/21/17 0751: Subjective Follow-up For: Altered mentation Hematoma of abdominal wall Profound hypothyroidism Subjective: Seen and examined She is confused and not oriented. Reports she is an 8011" intercolitis me. She is sitting in chair and reports better. She still have the abdominal pain. Review of Systems Constitutional: Reports: see HPI. Comments: Review of systems negative except about Objective Last 24 Hrs of Vital Signs/I&O Vital Signs Date Time Temp Pulse Resp B/P B/P Pulse O2 O2 Flow FiO2 Mean Ox Delivery Rate 11/21 0639 98.4 64 18 123/64 99 Room Air 11/20 2241 98.7 63 18 115/70 98 Room Air 11/20 2029 66 126/78 11/20 1540 98.1 66 18 118/80 100 Room Air 11/20 1254 96.6 64 20 110/76 98 Room Air 11/20 1019 96.6 60 20 133/88 91 Room Air Intake & Output 11/21 0800 11/21 0000 11/20 1600 Intake Total 800 0 Output Total Balance 800 0 Intake, Oral 800 0 Patient 78.471 kg Weight Physical Exam General Appearance: Alert, Mild Distress Skin: Bruising in the anterior abdominal region Skin Temp/Moisture Exam: Warm/Dry HEENT: Atraumatic, PERRLA, EOMI Neck: Supple Cardiovascular: Normal S1, Normal S2, No Murmurs Lungs: Clear to Auscultation, Normal Air Movement Abdomen: Normal Bowel Sounds, No Hepatospenomegaly, tender to palpation specifically in the right upper quadrant, palpable hematoma on the right side Neurological: Normal Tone, Sensation Intact, Cranial Nerves 3-12 NL Extremities: No Clubbing, No Cyanosis, 1-2+ edema Vascular: Normal Pulses, Pulses Symmetrical Current Medications: Current Medications Sig/Angela Start time Last Medication Dose Route Stop Time Status Admin Carvedilol 3.125 MG BID 11/20 2199 AC 11/21 PO 1007 Dabigatran 75 MG BID 11/20 2199 CAN PO Levothyroxine Sodium 0.075 MG DAILY AC 11/22 699 AC PO Levothyroxine Sodium 0.112 MG DAILY AC 11/21 699 DC 11/21 PO 0650 Patient Medication 1 ED ONE ONE 11/21 1030 DC 11/21 Teaching ED 11/21 1031 1137 Sodium Chloride 1,000 ML .Q20H 11/21 1015 AC 11/21 IV 11/22 0430 1136 Sodium Chloride 1,000 ML Q13H 11/20 1400 DC 11/21 IV 0338 Last 24 Hrs of Lab/Kris Results Last 24 Hrs of Labs/Mics: Laboratory Tests 11/21/17 0704: Anion Gap 10, Estimated GFR 21 L, BUN/Creatinine Ratio 19.5, Troponin I 0.03, Triglycerides 164 H, Cholesterol 146, LDL Cholesterol, Calc 78, HDL Cholesterol 36 L, Cholesterol/HDL Ratio 4, TSH &T3 &Free T4 Intrp 51.300 H, CBC w Diff NO MAN DIFF REQ, RBC 2.82 L, MCV 97.0, MCH 32.7 H, MCHC 33.7, RDW 16.7 H, MPV 12.5 H, Gran % 70.1, Lymphocytes % 16.2 L, Monocytes % 12.2 H, Eosinophils % 1.2, Basophils % 0.3, Absolute Granulocytes 5.4, Absolute Lymphocytes 1.2, Absolute Monocytes 0.9 H, Absolute Eosinophils 0.1, Absolute Basophils 0 11/21/17 0358: Lactic Acid 1.3, CBC w Diff NO MAN DIFF REQ, RBC 2.90 L, MCV 96.8, MCH 32.5 H, MCHC 33.6, RDW 16.5 H, MPV 11.9 H, Gran % 70.6, Lymphocytes % 15.9 L, Monocytes % 11.9 H, Eosinophils % 1.1, Basophils % 0.5, Absolute Granulocytes 5.8, Absolute Lymphocytes 1.3, Absolute Monocytes 1.0 H, Absolute Eosinophils 0.1, Absolute Basophils 0, Ref Lab Test Result Pending 11/20/171951: Lactic Acid 2.8 H, PT 49.4 *H, INR 4.46 *H, APTT 85 H, CBC w Diff NO MAN DIFF REQ, RBC 2.33 L, MCV 101.8 H, MCH 33.2 H, MCHC 32.7 L, RDW 14.5, MPV 12.7 H , Gran % 75.4 H, Lymphocytes % 13.3 L, Monocytes % 10.5 H, Eosinophils % 0.3, Basophils % 0.5, Absolute Granulocytes 5.9, Absolute Lymphocytes 1.0 L, Absolute Monocytes 0.8 H, Absolute Eosinophils 0, Absolute Basophils 0 11/20/17 1610: Lactic Acid 3.0 H, CBC w Diff NO MAN DIFF REQ, RBC 2.60 L, MCV 100.4 H, MCH 33.2 H, MCHC 33.1, RDW 14.4, MPV 12.5 H, Gran % 77.4 H, Lymphocytes % 12.6 L , Monocytes % 9.6 H, Eosinophils % 0.3, Basophils % 0.1, Absolute Granulocytes 6.4, Absolute Lymphocytes 1.1 L, Absolute Monocytes 0.8 H, Absolute Eosinophils 0, Absolute Basophils 0 Microbiology 11/20 1940 BLOOD: Blood Culture - RES 11/20 1518 URINE ROUT: Urine Culture - CAN Cancelled: Cancelled via OE: Per MD Decision Assessment/Plan Assessment: Patient is a elderly 82 YO F with PMH significant for A.fib on pradaxa, GI bleed , 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 She denies any recent falls, cough, reports compliance with medications. she did have abdominal pain since the past 1day. VS stable, hypothermic. PE significant for Tenderness in the RUQ region, mild edmea of the legs, very very dry skin. Labs are significant for H&H of 07/14 with MCV 99, platelets 97, BUN/Cr 24/2.4, Trop 0.02, TSH of 80, free T4 0.07. Imaging did show Large hemtoma involving the anterior & lateral chest wall extending to the pelvis with a depth of 6cm. Last ECHO in the system is 2002 with good EF 55%, LVH. Problem list 1. Rectus sheath hematoma 2. Lacitc acidosis 3. 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 Acute blood loss anemia 5. A.fib with CHADVaSC 4 6. Profound Hypothyrodism Acute Abdominal wall hematoma in the setting of anticoagulation Patient is not a good historian. Possiblities are she could have a fall (less likely on ventral side), increased cough (chronic smoker - smoker cough) or constipated straining causing this condition. She is hemodynamically stable. She had A.fib with CHADVaSc score of 4. 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 Agressively hydrated. Acute worsening of renal function could be from dehydration or volume depletion. * IV fluids - gentle hydration * Recheck BEP in the evening * Creatinine improved from 2.4 2.2 today with mild improvement in GFR Hypothyroidism She is hypothermic with dry skin, reports generalized weakness and fatigue at presentation. She did have anemia. She is reportedly compliant with medications - it is possible she might have difficulty absorbing levothyroxine. Her TSH is 80 with T4 of 0.07. She could have constipation secondary to this leading to hematoma while straining. * Repeat TSH and free T4 daily * Endocrinology consulted - for profound hypothermia * Selinium level -pending * Decrease levothyroxine dose to 75 g daily A.fib Patient was on pradaxa. CHADVaSC score of 4. Follows . EKG shows A.fib with rate control. * Continue to hold off on anticoagulation until bleeding resolves * If hemodynamically unstable, consider for reversal. * Continue Coreg with holding parameters * We will consider starting warfarin/apixaban depending on her renal function as per cardiology recommendations and discontinue Pradaxa in long run. DVT prophylaxis ALPS Code status full code Problem List: 1. Lactic acidosis 2. Anemia 3. Hypothyroidism 4. Hematoma Pain Ratin Pain Location: abdominal wall Pain Goal: Pain 4 or less Pain Plan: tylenol prn Tomorrow's Labs & Rationales: CBC to monitor H&H BEP to monitor BUN/Cr Yves AREVALO,[facility] 11/21/17 1133: Attending MD Review Statement Attending Statement Attending MD Statement: examined this patient, discuss w/resident/PA/STEWARD/[facility]INING RO[facility], agreed w/resident/PA/STEWARD/[facility]IN[facility] RO[facility], reviewed EMR data (avail), discussed with nursing, discussed with case mgmt, reviewed images, amended to note Attending Assessment/Plan: Patient seen and examined, she is feels cold but other than that denies any complaints. She denies any complaints about abdominal pain. Patient was found to have large rectus sheath hematoma yesterday on abdominal CT. She has very abnormal TSH. Vital Signs Date Time Temp Pulse Resp B/P B/P Pulse O2 O2 Flow FiO2 Mean Ox Delivery Rate 11/21 1007 64 123/64 11/21 0639 98.4 64 18 123/64 99 Room Air 11/21 0230 98.6 54 18 114/68 98 Room Air 11/21 0000 98 Room Air 11/20 2241 98.7 63 18 115/70 98 Room Air 11/20 2029 66 126/78 03 1540 98.1 66 18 118/80 100 Room Air 11/20 1254 96.6 64 20 110/76 98 Room Air on exam; awake, pleasantly confused. cv; s1,s2, irregular. resp; clear abd; soft, nt, bs+, + bruising on right sided abd. ext; no edema. skin; very dry skin. Laboratory Tests 11/21 0704 Chemistry Sodium (137 - 145 mmol/L) 145 Potassium (3.5 - 5.1 mmol/L) 4.0 Chloride (98 - 107 mmol/L) 115 H Carbon Dioxide (22 - 30 mmol/L) 19 L Anion Gap (5 - 16) 10 BUN (7 - 17 mg/dL) 43 H Creatinine (0.5 - 1.0 mg/dL) 2.2 H Estimated GFR (>60 ml/min) 21 L BUN/Creatinine Ratio (7 - 25 %) 19.5 Troponin I (< 0.11 ng/ml) 0.03 Triglycerides (<150 mg/dL) 164 H Cholesterol (<200 MG/DL) 146 LDL Cholesterol, Calc (65 - 129 mg/dL) 78 HDL Cholesterol (40 - 60 mg/dL) 36 L Cholesterol/HDL Ratio (0.00 - 4.23 %) 4 TSH &T3 &Free T4 Intrp (0.270 - 4.20 uIU/mL) 51.300 H Hematology CBC w Diff NO MAN DIFF REQ WBC (4.8 - 10.8 /CUMM) 7.7 RBC (4.20 - 5.40 /CUMM) 2.82 L Hgb (12.0 - 16.0 G/DL) 9.2 L Hct (37 - 47 %) 27.4 L MCV (81.0 - 99.0 FL) 97.0 MCH (27.0 - 31.0 PG) 32.7 H MCHC (33.0 - 37.0 G/DL) 33.7 RDW (11.5 - 14.5 %) 16.7 H Plt Count (130 - 400 /CUMM) 71 L MPV (7.4 - 10.4 FL) 12.5 H Gran % (42.2 - 75.2 %) 70.1 Lymphocytes % (20.5 - 51.1 %) 16.2 L Monocytes % (1.7 - 9.3 %) 12.2 H Eosinophils % (0 - 5 %) 1.2 Basophils % (0.0 - 2.0 %) 0.3 Absolute Granulocytes (1.4 - 6.5 /CUMM) 5.4 Absolute Lymphocytes (1.2 - 3.4 /CUMM) 1.2 Absolute Monocytes (0.10 - 0.60 /CUMM) 0.9 H Absolute Eosinophils (0.0 - 0.7 /CUMM) 0.1 Absolute Basophils (0.0 - 0.2 /CUMM) 0 11/21 Chemistry Lactic Acid (0.7 - 2.1 mmol/L) 1.3 2.8 H Coagulation PT (9.4 - 12.5 SEC) 49.4 *H INR (0.90 - 1.19) 4.46 *H APTT (25 - 37 SEC) 85 H Hematology CBC w Diff NO MAN DIFF REQ NO MAN DIFF REQ WBC (4.8 - 10.8 /CUMM) 8.3 7.8 RBC (4.20 - 5.40 /CUMM) 2.90 L 2.33 L Hgb (12.0 - 16.0 G/DL) 9.4 L 7.7 L Hct (37 - 47 %) 28.1 L 23.7 L MCV (81.0 - 99.0 FL) 96.8 101.8 H MCH (27.0 - 31.0 PG) 32.5 H 33.2 H MCHC (33.0 - 37.0 G/DL) 33.6 32.7 L RDW (11.5 - 14.5 %) 16.5 H 14.5 Plt Count (130 - 400 /CUMM) 72 L 74 L MPV (7.4 - 10.4 FL) 11.9 H 12.7 H Gran % (42.2 - 75.2 %) 70.6 75.4 H Lymphocytes % (20.5 - 51.1 %) 15.9 L 13.3 L Monocytes % (1.7 - 9.3 %) 11.9 H 10.5 H Eosinophils % (0 - 5 %) 1.1 0.3 Basophils % (0.0 - 2.0 %) 0.5 0.5 Absolute Granulocytes (1.4 - 6.5 /CUMM) 5.8 5.9 Absolute Lymphocytes (1.2 - 3.4 /CUMM) 1.3 1.0 L Absolute Monocytes (0.10 - 0.60 /CUMM) 1.0 H 0.8 H Absolute Eosinophils (0.0 - 0.7 /CUMM) 0.1 0 Absolute Basophils (0.0 - 0.2 /CUMM) 0 0 Miscellaneous Ref Lab Test Result Pending 11/20 11/20 1610 1330 Chemistry Lactic Acid (0.7 - 2.1 mmol/L) 3.0 H Hematology CBC w Diff NO MAN DIFF REQ WBC (4.8 - 10.8 /CUMM) 8.3 RBC (4.20 - 5.40 /CUMM) 2.60 L Hgb (12.0 - 16.0 G/DL) 8.6 L Hct (37 - 47 %) 26.1 L MCV (81.0 - 99.0 FL) 100.4 H MCH (27.0 - 31.0 PG) 33.2 H MCHC (33.0 - 37.0 G/DL) 33.1 RDW (11.5 - 14.5 %) 14.4 Plt Count (130 - 400 /CUMM) 81 L MPV (7.4 - 10.4 FL) 12.5 H Gran % (42.2 - 75.2 %) 77.4 H Lymphocytes % (20.5 - 51.1 %) 12.6 L Monocytes % (1.7 - 9.3 %) 9.6 H Eosinophils % (0 - 5 %) 0.3 Basophils % (0.0 - 2.0 %) 0.1 Absolute Granulocytes (1.4 - 6.5 /CUMM) 6.4 Absolute Lymphocytes (1.2 - 3.4 /CUMM) 1.1 L Absolute Monocytes (0.10 - 0.60 /CUMM) 0.8 H Absolute Eosinophils (0.0 - 0.7 /CUMM) 0 Absolute Basophils (0.0 - 0.2 /CUMM) 0 Urines Urinalysis LIGHT H Urine Color (YEL,AMB,STR) YEL Urine Clarity (CLEAR) HAZY H Urine pH (5.0 - 8.0) 6.0 Ur Specific [place] (1.001 - 1.035) 1.025 Urine Protein (NEG,<30 MG/DL) 30 H Urine Ketones (NEG) TRACE H Urine Nitrite (NEG) NEG Urine Bilirubin (NEG) NEG Urine Urobilinogen (0.1 - 1.0 EU/dl) 0.2 Ur Leukocyte Esterase (NEG) NEG Ur Microscopic SEDIMENT EXAMINED Urine WBC (0 - 2 /HPF) 5-10 H Ur Epithelial Cells (NONE,FEW) MANY H Urine Bacteria (NEG/NONE) MANY H Urine Mucus (FEW,NONE) MOD H Urine Hemoglobin (NEG) NEG Urine Glucose (N MG/DL) NEG 11/20 1200 Blood Gas pH (7.35 - 7.45 PH) 7.42 pCO2 (35 - 45 TORR) 30 L pO2 (80 - 100 TORR) 77 L HCO3 (21 - 28 MEQ/L) 19 L ABG O2 Sat (Measured) (>96.0 %) 93.0 L Carboxyhemoglobin (1.5 - 5.0 %) 0.6 L O2 Concentration % RA Miscellaneous Phlebotomy Draw Site RIGHT RADIAL A/P; 82-year-old female with past history significant for A. fib, hypothyroidism , dementia, hypertension admitted with altered mental state, generalized weakness, acute blood loss anemia and acute renal failure. Patient also has high lactate levels. Lactate level has trended down. Patient was found to have large abdominal wall hematoma on abdominal CT yesterday. She did drop her H&H secondary to acute blood loss anemia from hematoma and she was transfused 2 units of RBCs. Her Pradaxa was held after discussing voice pathologist. Patient was hemodynamically stable and there were no procedures planned therefore antidote was not given per cardiology. Monitor H&H. Cardiology consult is obtained to guide future antecolic location therapy for history of atrial fibrillation. Please obtain endocrinology consult for very abnormal TSH. Patient claims that she is compliant with her levothyroxine. Continue gentle IV hydration while watching her respiratory status. Please get PT evaluation. DVT prophylaxis: ALPS.
[2017-11-21 08:36] LABS: ABSOLUTE BASOPHIL COUNT 0 /CUMM (0.0-0.2); ABSOLUTE EOSINOPHIL COUNT 0.1 /CUMM (0.0-0.7); ABSOLUTE GRANULOCYTE CT 5.4 /CUMM (1.4-6.5); ABSOLUTE LYMPH COUNT 1.2 /CUMM (1.2-3.4); ABSOLUTE MONOCYTE COUNT 0.9 /CUMM (0.10-0.60); BASOPHIL % 0.3 % (0.0-2.0); EOSINOPHIL % 1.2 % (0-5); MEAN PLATELET VOLUME 12.5 FL (7.4-10.4); RED BLOOD CELL CT 2.82 /CUMM (4.20-5.40); WHITE BLOOD CELL COUNT 7.7 /CUMM (4.8-10.8)
[2017-11-21 09:01] LABS: GRANULOCYTE % 70.1 % (42.2-75.2); HEMATOCRIT 27.4 % (37-47); MEAN CORPUSCULAR HGB 32.7 PG (27.0-31.0); MEAN CORPUSCULAR HGB CONC 33.7 G/DL (33.0-37.0); RBC DISTRIBUTION WIDTH 16.7 % (11.5-14.5)
[2017-11-21 09:58] LABS: PLATELET COUNT 71 /CUMM (130-400)
--- NOTE | 2017-11-21 12:40 | Cons- Cardiology ---
General Information and HPI Consulting Request Date of Consult: 11/21/17 Requested By: Azeb Marinelli MD Reason for Consult: Mental status change, atrial fibrillation, abdominal wall hematoma Source of Information: patient, old records Exam Limitations: dementia, poor historian History of Present Illness: The patient is an 82-year-old woman with a past medical history of atrial fibrillation, hypothyroidism, hypertension and dementia. She presented to our hospital with symptoms of increasing weakness. She was noted to be anemic, and found to have a large abdominal wall hematoma. Of note, she is anticoagulated for atrial fibrillation with Pradaxa The patient states she has been overall well and denies symptoms of chest pains, palpitations nor dyspnea with physical activity or at rest. She describes performance of a proximally 4-6 METs of physical activity on a regular basis without difficulty. She was noted to have increasing weakness as well as confusion, onset on the day of her arrival. The patient otherwise denies recent trauma nor falls; however, has a noted large rectus sheath hematoma by CT scan. Allergies/Medications Allergies: Coded Allergies: shellfish derived (Intermediate, HIVES 08/17/17) Home Med List: Acetaminophen With Codeine (Acetaminophen-Cod #2 Tablet) 300 MG-15 MG TABLET 1 TAB PO TID PAIN (Reported) Carvedilol 3.125 MG TABLET 1 TAB PO BID HEART/BP (Reported) Dabigatran (Pradaxa) 75 MG CAPSULE 1 CAP PO BID BLOOD THINNER (Reported) Levothyroxine Sodium 112 MCG TABLET 1 TAB PO DAILY THYROID (Reported) Current Medications: Current Medications Sig/Angela Start time Last Medication Dose Route Stop Time Status Admin Carvedilol 3.125 MG BID 11/20 2200 AC 11/21 PO 1007 Dabigatran 75 MG BID 11/20 2200 CAN PO Levothyroxine Sodium 0.112 MG DAILY AC 11/21 0700 AC 11/21 PO 0650 Patient Medication 1 ED ONE ONE 11/21 1030 DC 11/21 Teaching ED 11/21 1031 1137 Sodium Chloride 1,000 ML .[id number] 11/21 1015 AC 11/21 IV 11/21 2334 1136 Sodium Chloride 1,000 ML Q13H 11/20 1400 DC 11/21 IV 0338 Sodium Chloride 1,000 ML BOLUS ONE 11/20 1145 DC 11/20 IV 11/20 1244 1635 Review of Systems Review of Systems: The review of systems is negative for chest pains, palpitations nor lightheadedness. The remainder of the 14 point review of systems is noncontributory with the exception of above. Past History Travel History Traveled to [place] past 21 day No Medical History Neurological: dementia EENT: NONE Cardiovascular: AFIB, hypertension Respiratory: NONE Gastrointestinal: NONE Hepatic: NONE Renal: NONE Musculoskeletal: NONE Psychiatric: NONE Endocrine: hypothyroidism Blood Disorders: NONE Cancer(s): NONE FOOD SERVICE ASSOCIATE/Reproductive: NONE Surgical History Surgical History: none Psychosocial History Where Do You Live? Home Who Do You Live With? child friend Services at Home: None Primary Language: Hebrew Smoking Status: Current Everyday Smoker ETOH Use: denies use Illicit Drug Use: denies illicit drug use Functional Ability ADLs Independent: dressing, eating, toileting, bathing. Ambulation: independent IADLs Needs Assist: shopping, housework, finances, food prep, telephone, transportation, medication admin. Exam & Diagnostic Data Vital Signs and I&O Vital Signs Date Time Temp Pulse Resp B/P B/P Pulse O2 O2 Flow FiO2 Mean Ox Delivery Rate 11/21 1007 64 123/64 11/21 0639 98.4 64 18 123/64 99 Room Air / 0230 98.6 54 18 114/68 98 Room Air / 0000 98 Room Air 11/20 2241 98.7 63 18 115/70 98 Room Air 11/20 2029 66 126/78 03/ 1540 98.1 66 18 118/80 100 Room Air / 1254 96.6 64 20 110/76 98 Room Air Intake & Output 11/21 1600 11/21 0800 / 0000 / 1600 11/20 0800 / 0000 Intake Total 675 800 0 Output Total Balance 675 800 0 Intake, Blood 350 Product Intake, IV 275 Intake, Oral 50 800 0 Number 1 0 Bowel Movements Patient 173 lb Weight Physical Exam: General: Nontoxic, no apparent distress. HEENT: Sclera and conjunctiva within normal limits, without xanthelasmas. Neck: Carotids 2+ without bruits. Respiratory: Clear to auscultation, air movement is good, without accessory respiratory muscle use. Heart: Irregularly irregular rate and rhythm, without murmurs, without JVD. Abdomen: Soft, nontender, no masses, normoactive bowel sounds, right-sided ecchymosis. Extremities: Without clubbing, cyanosis, without edema. Neuro: Nonfocal exam, strength, 5 out of 5 Skin: Within normal limits without lesions. Psych: Mood and affect: Normal Labs/Kris Results: Laboratory Tests 11/21 0704 Chemistry Sodium (137 - 145 mmol/L) 145 Potassium (3.5 - 5.1 mmol/L) 4.0 Chloride (98 - 107 mmol/L) 115 H Carbon Dioxide (22 - 30 mmol/L) 19 L Anion Gap (5 - 16) 10 BUN (7 - 17 mg/dL) 43 H Creatinine (0.5 - 1.0 mg/dL) 2.2 H Estimated GFR (>60 ml/min) 21 L BUN/Creatinine Ratio (7 - 25 %) 19.5 Troponin I (< 0.11 ng/ml) 0.03 Triglycerides (<150 mg/dL) 164 H Cholesterol (<200 MG/DL) 146 LDL Cholesterol, Calc (65 - 129 mg/dL) 78 HDL Cholesterol (40 - 60 mg/dL) 36 L Cholesterol/HDL Ratio (0.00 - 4.23 %) 4 TSH &T3 &Free T4 Intrp (0.270 - 4.20 uIU/mL) 51.300 H Hematology CBC w Diff NO MAN DIFF REQ WBC (4.8 - 10.8 /CUMM) 7.7 RBC (4.20 - 5.40 /CUMM) 2.82 L Hgb (12.0 - 16.0 G/DL) 9.2 L Hct (37 - 47 %) 27.4 L MCV (81.0 - 99.0 FL) 97.0 MCH (27.0 - 31.0 PG) 32.7 H MCHC (33.0 - 37.0 G/DL) 33.7 RDW (11.5 - 14.5 %) 16.7 H Plt Count (130 - 400 /CUMM) 71 L MPV (7.4 - 10.4 FL) 12.5 H Gran % (42.2 - 75.2 %) 70.1 Lymphocytes % (20.5 - 51.1 %) 16.2 L Monocytes % (1.7 - 9.3 %) 12.2 H Eosinophils % (0 - 5 %) 1.2 Basophils % (0.0 - 2.0 %) 0.3 Absolute Granulocytes (1.4 - 6.5 /CUMM) 5.4 Absolute Lymphocytes (1.2 - 3.4 /CUMM) 1.2 Absolute Monocytes (0.10 - 0.60 /CUMM) 0.9 H Absolute Eosinophils (0.0 - 0.7 /CUMM) 0.1 Absolute Basophils (0.0 - 0.2 /CUMM) 0 11/218 1952 Chemistry Lactic Acid (0.7 - 2.1 mmol/L) 1.3 2.8 H Coagulation PT (9.4 - 12.5 SEC) 49.4 *H INR (0.90 - 1.19) 4.46 *H APTT (25 - 37 SEC) 85 H Hematology CBC w Diff NO MAN DIFF REQ NO MAN DIFF REQ WBC (4.8 - 10.8 /CUMM) 8.3 7.8 RBC (4.20 - 5.40 /CUMM) 2.90 L 2.33 L Hgb (12.0 - 16.0 G/DL) 9.4 L 7.7 L Hct (37 - 47 %) 28.1 L 23.7 L MCV (81.0 - 99.0 FL) 96.8 101.8 H MCH (27.0 - 31.0 PG) 32.5 H 33.2 H MCHC (33.0 - 37.0 G/DL) 33.6 32.7 L RDW (11.5 - 14.5 %) 16.5 H 14.5 Plt Count (130 - 400 /CUMM) 72 L 74 L MPV (7.4 - 10.4 FL) 11.9 H 12.7 H Gran % (42.2 - 75.2 %) 70.6 75.4 H Lymphocytes % (20.5 - 51.1 %) 15.9 L 13.3 L Monocytes % (1.7 - 9.3 %) 11.9 H 10.5 H Eosinophils % (0 - 5 %) 1.1 0.3 Basophils % (0.0 - 2.0 %) 0.5 0.5 Absolute Granulocytes (1.4 - 6.5 /CUMM) 5.8 5.9 Absolute Lymphocytes (1.2 - 3.4 /CUMM) 1.3 1.0 L Absolute Monocytes (0.10 - 0.60 /CUMM) 1.0 H 0.8 H Absolute Eosinophils (0.0 - 0.7 /CUMM) 0.1 0 Absolute Basophils (0.0 - 0.2 /CUMM) 0 0 Miscellaneous Ref Lab Test Result Pending 11/20 11/20 1610 1330 Chemistry Lactic Acid (0.7 - 2.1 mmol/L) 3.0 H Hematology CBC w Diff NO MAN DIFF REQ WBC (4.8 - 10.8 /CUMM) 8.3 RBC (4.20 - 5.40 /CUMM) 2.60 L Hgb (12.0 - 16.0 G/DL) 8.6 L Hct (37 - 47 %) 26.1 L MCV (81.0 - 99.0 FL) 100.4 H MCH (27.0 - 31.0 PG) 33.2 H MCHC (33.0 - 37.0 G/DL) 33.1 RDW (11.5 - 14.5 %) 14.4 Plt Count (130 - 400 /CUMM) 81 L MPV (7.4 - 10.4 FL) 12.5 H Gran % (42.2 - 75.2 %) 77.4 H Lymphocytes % (20.5 - 51.1 %) 12.6 L Monocytes % (1.7 - 9.3 %) 9.6 H Eosinophils % (0 - 5 %) 0.3 Basophils % (0.0 - 2.0 %) 0.1 Absolute Granulocytes (1.4 - 6.5 /CUMM) 6.4 Absolute Lymphocytes (1.2 - 3.4 /CUMM) 1.1 L Absolute Monocytes (0.10 - 0.60 /CUMM) 0.8 H Absolute Eosinophils (0.0 - 0.7 /CUMM) 0 Absolute Basophils (0.0 - 0.2 /CUMM) 0 Urines Urinalysis LIGHT H Urine Color (YEL,AMB,STR) YEL Urine Clarity (CLEAR) HAZY H Urine pH (5.0 - 8.0) 6.0 Ur Specific [place] (1.001 - 1.035) 1.025 Urine Protein (NEG,<30 MG/DL) 30 H Urine Ketones (NEG) TRACE H Urine Nitrite (NEG) NEG Urine Bilirubin (NEG) NEG Urine Urobilinogen (0.1 - 1.0 EU/dl) 0.2 Ur Leukocyte Esterase (NEG) NEG Ur Microscopic SEDIMENT EXAMINED Urine WBC (0 - 2 /HPF) 5-10 H Ur Epithelial Cells (NONE,FEW) MANY H Urine Bacteria (NEG/NONE) MANY H Urine Mucus (FEW,NONE) MOD H Urine Hemoglobin (NEG) NEG Urine Glucose (N MG/DL) NEG 11/20 11/20 1200 1030 Blood Gas pH (7.35 - 7.45 PH) 7.42 pCO2 (35 - 45 TORR) 30 L pO2 (80 - 100 TORR) 77 L HCO3 (21 - 28 MEQ/L) 19 L ABG O2 Sat (Measured) (>96.0 %) 93.0 L Carboxyhemoglobin (1.5 - 5.0 %) 0.6 L O2 Concentration % RA Chemistry Sodium (137 - 145 mmol/L) 146 H Potassium (3.5 - 5.1 mmol/L) 4.0 Chloride (98 - 107 mmol/L) 109 H Carbon Dioxide (22 - 30 mmol/L) 20 L Anion Gap (5 - 16) 17 H BUN (7 - 17 mg/dL) 34 H Creatinine (0.5 - 1.0 mg/dL) 2.4 H Estimated GFR (>60 ml/min) 19 L BUN/Creatinine Ratio (7 - 25 %) 14.2 Glucose (65 - 99 mg/dL) 157 H Lactic Acid (0.7 - 2.1 mmol/L) 5.5 H Calcium (8.4 - 10.2 mg/dL) 8.6 Total Bilirubin (0.2 - 1.3 mg/dL) 0.9 AST (14 - 36 U/L) 21 ALT (9 - 52 U/L) 20 Alkaline Phosphatase (<127 U/L) 57 Troponin I (< 0.11 ng/ml) 0.02 Total Protein (6.3 - 8.2 g/dL) 6.4 Albumin (3.5 - 5.0 g/dL) 3.4 L Globulin (1.9 - 4.2 gm/dL) 3.0 Albumin/Globulin Ratio (1.1 - 2.2 %) 1.1 Amylase (30 - 110 U/L) 37 Lipase (23 - 300 U/L) 77 TSH (0.270 - 4.200 uIU/mL) 80.400 H Free T4 (0.85 - 1.93 ng/dL) 0.07 L Hematology CBC w Diff NO MAN DIFF REQ WBC (4.8 - 10.8 /CUMM) 7.0 RBC (4.20 - 5.40 /CUMM) 2.99 L Hgb (12.0 - 16.0 G/DL) 10.0 L Hct (37 - 47 %) 29.9 L MCV (81.0 - 99.0 FL) 99.9 H MCH (27.0 - 31.0 PG) 33.5 H MCHC (33.0 - 37.0 G/DL) 33.5 RDW (11.5 - 14.5 %) 14.4 Plt Count (130 - 400 /CUMM) 97 L MPV (7.4 - 10.4 FL) 12.5 H Gran % (42.2 - 75.2 %) 79.9 H Lymphocytes % (20.5 - 51.1 %) 10.9 L Monocytes % (1.7 - 9.3 %) 8.3 Eosinophils % (0 - 5 %) 0.4 Basophils % (0.0 - 2.0 %) 0.5 Absolute Granulocytes (1.4 - 6.5 /CUMM) 5.6 Absolute Lymphocytes (1.2 - 3.4 /CUMM) 0.8 L Absolute Monocytes (0.10 - 0.60 /CUMM) 0.6 Absolute Eosinophils (0.0 - 0.7 /CUMM) 0 Absolute Basophils (0.0 - 0.2 /CUMM) 0 Miscellaneous Phlebotomy Draw Site RIGHT RADIAL Assessment/Plan Assessment/Plan 82-year-old woman with a past medical history of atrial fibrillation, hypothyroidism, hypertension and dementia. She presented to our hospital with symptoms of increasing weakness. She was noted to be anemic, and found to have a large abdominal wall hematoma. Of note, she is anticoagulated for atrial fibrillation with Pradaxa Atrial fibrillation: The patient has known atrial fibrillation and has been anticoagulated with Pradaxa. She presented with likely acute on chronic kidney injury, and given her anticoagulation use was likely supratherapeutic. At this time, Pradaxa is being held, and I would discontinue it altogether. Once stable from her rectus sheath hematoma, we will need to restart anticoagulation with likely warfarin unless renal function improves. At that time, an agent such as apixaban may be favorable due to its renal elimination properties. As her hemoglobin is currently stable and given the timing of her last dose of Pradaxa, there is no indication for reversal. Hypothyroidism: Further follow-up with endocrinology is pending. Hypertension: Currently stable, we'll continue the current medication regimen and further adjust as an outpatient. Thank you for allowing us to participate in the care of your patient. Please do not hesitate to contact us further with any questions. Sincerely, David Ramires MD [facility] Consult Acknowledgment - Thank you for your consult request.
--- NOTE | 2017-11-21 12:44 | Cons- Endocrinology ---
General Information and HPI Consulting Request Date of Consult: 11/21/17 Requested By: medical team Reason for Consult: severe hypothyroidism Source of Information: patient, old records Exam Limitations: confusion History of Present Illness: This 82-year-old woman was brought to the emergency room because of increasing confusion. The patient apparently has a history of thyroid disease and has received radioactive iodine in the past. She was on Synthroid 112 mcg daily prior to admission but it is not certain whether she was taking her pills. Prior to admission she is reported to have become increasingly confused and weak. Her family friends brought her to the ER. She has been found to have significant hypothyroidism with a TSH on admission of 80.4 and her free T4 of 0.07. The patient was restarted on levothyroxine 112 mcg daily. Her repeat labs today TSH 51.3. Her free T4 has not been remeasured today. The patient is confused and cannot give a history. Of note her body temperature was 96.6 on admission. Today her body temperature was 98.4 and her pulse is 64. The patient also has evidence of acute kidney injury. Her baseline creatinine according to the [facility] computer was in the 1.7 range. When she presented her creatinine was 2.4 and today after hydration it is 2.2. Serum sodium is 145. Interestingly her cholesterol was only 146 when would be expected to be very high in the face of hypothyroidism. The patient states she feels very cold. Otherwise she does not offer any complaints. She is confused and not aware of where she is. Allergies/Medications Allergies: Coded Allergies: shellfish derived (Intermediate, HIVES 08/17/17) Home Med List: Acetaminophen With Codeine (Acetaminophen-Cod #2 Tablet) 300 MG-15 MG TABLET 1 TAB PO TID PAIN (Reported) Carvedilol 3.125 MG TABLET 1 TAB PO BID HEART/BP (Reported) Dabigatran (Pradaxa) 75 MG CAPSULE 1 CAP PO BID BLOOD THINNER (Reported) Levothyroxine Sodium 112 MCG TABLET 1 TAB PO DAILY THYROID (Reported) Review of Systems Comments Cannot answer questions appropriately Past History Travel History Traveled to [place] past 21 day No Medical History Neurological: dementia EENT: NONE Cardiovascular: AFIB, hypertension Respiratory: NONE Gastrointestinal: NONE Hepatic: NONE Renal: NONE Musculoskeletal: NONE Psychiatric: NONE Endocrine: hypothyroidism Blood Disorders: NONE Cancer(s): NONE HEAD OF ENGLISH/Reproductive: NONE Psychosocial History Where Do You Live? Home Who Do You Live With? child friend Services at Home: None Primary Language: Belgian Smoking Status: Current Everyday Smoker ETOH Use: denies use Illicit Drug Use: denies illicit drug use Functional Ability ADLs Independent: dressing, eating, toileting, bathing. Ambulation: independent IADLs Needs Assist: shopping, housework, finances, food prep, telephone, transportation, medication admin. Exam & Diagnostic Data Last 24 Hrs of Vital Signs/I&O Vital Signs Date Time Temp Pulse Resp B/P B/P Pulse O2 O2 Flow FiO2 Mean Ox Delivery Rate 11/21 1007 64 123/64 11/21 0639 98.4 64 18 123/64 99 Room Air 11/21 0230 98.6 54 18 114/68 98 Room Air 11/21 0000 98 Room Air 11/20 2241 98.7 63 18 115/70 98 Room Air 11/20 2029 66 126/78 11/20 1540 98.1 66 18 118/80 100 Room Air 11/20 1254 96.6 64 20 110/76 98 Room Air Intake & Output 11/21 1600 11/21 0800 11/21 0000 Intake Total 675 800 Output Total Balance 675 800 Intake, Blood 350 Product Intake, IV 275 Intake, Oral 50 800 Number 1 0 Bowel Movements Physical Exam General Appearance: alert, awake, confused Eyes: Bilateral: normal appearance. Neck: normal inspection Cardiovascular: regular rate/rhythm Gastrointestinal: normal bowel sounds Extremities: multiple ecchymoses Skin: ecchymosis Labs/Kris Results: Laboratory Tests 11/22 703 Chemistry Sodium (137 - 145 mmol/L) 145 Potassium (3.5 - 5.1 mmol/L) 4.0 Chloride (98 - 107 mmol/L) 115 H Carbon Dioxide (22 - 30 mmol/L) 19 L Anion Gap (5 - 16) 10 BUN (7 - 17 mg/dL) 43 H Creatinine (0.5 - 1.0 mg/dL) 2.2 H Estimated GFR (>60 ml/min) 21 L BUN/Creatinine Ratio (7 - 25 %) 19.5 Troponin I (< 0.11 ng/ml) 0.03 Triglycerides (<150 mg/dL) 164 H Cholesterol (<200 MG/DL) 146 LDL Cholesterol, Calc (65 - 129 mg/dL) 78 HDL Cholesterol (40 - 60 mg/dL) 36 L Cholesterol/HDL Ratio (0.00 - 4.23 %) 4 TSH &T3 &Free T4 Intrp (0.270 - 4.20 uIU/mL) 51.300 H Hematology CBC w Diff NO MAN DIFF REQ WBC (4.8 - 10.8 /CUMM) 7.7 RBC (4.20 - 5.40 /CUMM) 2.82 L Hgb (12.0 - 16.0 G/DL) 9.2 L Hct (37 - 47 %) 27.4 L MCV (81.0 - 99.0 FL) 97.0 MCH (27.0 - 31.0 PG) 32.7 H MCHC (33.0 - 37.0 G/DL) 33.7 RDW (11.5 - 14.5 %) 16.7 H Plt Count (130 - 400 /CUMM) 71 L MPV (7.4 - 10.4 FL) 12.5 H Gran % (42.2 - 75.2 %) 70.1 Lymphocytes % (20.5 - 51.1 %) 16.2 L Monocytes % (1.7 - 9.3 %) 12.2 H Eosinophils % (0 - 5 %) 1.2 Basophils % (0.0 - 2.0 %) 0.3 Absolute Granulocytes (1.4 - 6.5 /CUMM) 5.4 Absolute Lymphocytes (1.2 - 3.4 /CUMM) 1.2 Absolute Monocytes (0.10 - 0.60 /CUMM) 0.9 H Absolute Eosinophils (0.0 - 0.7 /CUMM) 0.1 Absolute Basophils (0.0 - 0.2 /CUMM) 0 11/218 1951 Chemistry Lactic Acid (0.7 - 2.1 mmol/L) 1.3 2.8 H Coagulation PT (9.4 - 12.5 SEC) 49.4 *H INR (0.90 - 1.19) 4.46 *H APTT (25 - 37 SEC) 85 H Hematology CBC w Diff NO MAN DIFF REQ NO MAN DIFF REQ WBC (4.8 - 10.8 /CUMM) 8.3 7.8 RBC (4.20 - 5.40 /CUMM) 2.90 L 2.33 L Hgb (12.0 - 16.0 G/DL) 9.4 L 7.7 L Hct (37 - 47 %) 28.1 L 23.7 L MCV (81.0 - 99.0 FL) 96.8 101.8 H MCH (27.0 - 31.0 PG) 32.5 H 33.2 H MCHC (33.0 - 37.0 G/DL) 33.6 32.7 L RDW (11.5 - 14.5 %) 16.5 H 14.5 Plt Count (130 - 400 /CUMM) 72 L 74 L MPV (7.4 - 10.4 FL) 11.9 H 12.7 H Gran % (42.2 - 75.2 %) 70.6 75.4 H Lymphocytes % (20.5 - 51.1 %) 15.9 L 13.3 L Monocytes % (1.7 - 9.3 %) 11.9 H 10.5 H Eosinophils % (0 - 5 %) 1.1 0.3 Basophils % (0.0 - 2.0 %) 0.5 0.5 Absolute Granulocytes (1.4 - 6.5 /CUMM) 5.8 5.9 Absolute Lymphocytes (1.2 - 3.4 /CUMM) 1.3 1.0 L Absolute Monocytes (0.10 - 0.60 /CUMM) 1.0 H 0.8 H Absolute Eosinophils (0.0 - 0.7 /CUMM) 0.1 0 Absolute Basophils (0.0 - 0.2 /CUMM) 0 0 Miscellaneous Ref Lab Test Result Pending 11/20 11/20 1610 1330 Chemistry Lactic Acid (0.7 - 2.1 mmol/L) 3.0 H Hematology CBC w Diff NO MAN DIFF REQ WBC (4.8 - 10.8 /CUMM) 8.3 RBC (4.20 - 5.40 /CUMM) 2.60 L Hgb (12.0 - 16.0 G/DL) 8.6 L Hct (37 - 47 %) 26.1 L MCV (81.0 - 99.0 FL) 100.4 H MCH (27.0 - 31.0 PG) 33.2 H MCHC (33.0 - 37.0 G/DL) 33.1 RDW (11.5 - 14.5 %) 14.4 Plt Count (130 - 400 /CUMM) 81 L MPV (7.4 - 10.4 FL) 12.5 H Gran % (42.2 - 75.2 %) 77.4 H Lymphocytes % (20.5 - 51.1 %) 12.6 L Monocytes % (1.7 - 9.3 %) 9.6 H Eosinophils % (0 - 5 %) 0.3 Basophils % (0.0 - 2.0 %) 0.1 Absolute Granulocytes (1.4 - 6.5 /CUMM) 6.4 Absolute Lymphocytes (1.2 - 3.4 /CUMM) 1.1 L Absolute Monocytes (0.10 - 0.60 /CUMM) 0.8 H Absolute Eosinophils (0.0 - 0.7 /CUMM) 0 Absolute Basophils (0.0 - 0.2 /CUMM) 0 Urines Urinalysis LIGHT H Urine Color (YEL,AMB,STR) YEL Urine Clarity (CLEAR) HAZY H Urine pH (5.0 - 8.0) 6.0 Ur Specific [place] (1.001 - 1.035) 1.025 Urine Protein (NEG,<30 MG/DL) 30 H Urine Ketones (NEG) TRACE H Urine Nitrite (NEG) NEG Urine Bilirubin (NEG) NEG Urine Urobilinogen (0.1 - 1.0 EU/dl) 0.2 Ur Leukocyte Esterase (NEG) NEG Ur Microscopic SEDIMENT EXAMINED Urine WBC (0 - 2 /HPF) 5-10 H Ur Epithelial Cells (NONE,FEW) MANY H Urine Bacteria (NEG/NONE) MANY H Urine Mucus (FEW,NONE) MOD H Urine Hemoglobin (NEG) NEG Urine Glucose (N MG/DL) NEG Assessment/Plan Assessment/Plan This 82-year-old woman presents with profound hypothyroidism. She cannot give a history herself but the information we have suggests that she has been treated for hyperthyroidism in the past with radioactive iodine. She was supposed to be taking levothyroxine 112 mcg daily at home. She became increasingly confused and also has evidence of acute on chronic renal insufficiency. Most likely she was not taking her thyroid pills at home for quite some time. The patient has anemia probably related to bleeding under the skin with possible multiple falls at home. In addition the anemia could be related to her chronic kidney disease. Her hematocrit should be monitored carefully as she was on dabigatran. The patient is now on oral levothyroxine 112 mcg daily. There has been improvement with just 2 doses of this medication with her body temperature now normal and her pulse rate normal. Her renal function is also improving in the presence of thyroid hormone and hydration. Her baseline creatinine is 1.6-1.7 according to the records we have in the [facility]. Hypothyroidism can certainly lead to decreased perfusion of the kidneys and the patient probably also was getting dehydrated. At this time I would decrease her levothyroxine to 75 mcg daily. View of her age and history of atrial fibrillation and heart disease we need to go slowly with thyroid hormone repletion.. I do not feel she needs IV levothyroxine at this time. She seems to be improving on oral levothyroxine. Would check her thyroid function tests daily including a free T4 and TSH level so that we can be sure it is continuing to improve. We also need to repeat her BUN/creatinine and electrolytes daily. Consult Acknowledgment - Thank you for your consult request.
[2017-11-21 14:39] VITALS: BP 110/76
[2017-11-21 20:30] VITALS: BP 122/70
[2017-11-22 06:28] VITALS: BP 124/58
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
--- NOTE | 2017-11-22 08:47 | PN- Endocrinology ---
Assessment/Plan Endoscopy Assessment: This 82-year-old woman was brought to the emergency room because of increasing confusion. The patient apparently has a history of thyroid disease and has received radioactive iodine in the past. She was on Synthroid 112 mcg daily prior to admission but it is not certain whether she was taking her pills. Prior to admission she is reported to have become increasingly confused and weak. Her family friends brought her to the ER. She has been found to have significant hypothyroidism with a TSH on admission of 80.4 and her free T4 of 0.07. The patient was restarted on levothyroxine 112 mcg daily. Her repeat labs yesterday showed TSH 51.3. Yesterday we recommended reducing the dose of levothyroxine to 75 mcg daily. This was in view of the patient's age and history of cardiac disease. We do not want to provoke any ischemic cardiac events are arrhythmias by calling too quickly on replacement therapy. Today's labs are pending. Plan: Suggest continue levothyroxine 75 mcg by mouth daily. Await today's labs. Consider social service consult in view of the multiple bruises that the patient has. Subjective Subjective: States she feels okay Objective Last 24 Hrs of Vital Signs/I&O Vital Signs Date Time Temp Pulse Resp B/P B/P Pulse O2 O2 Flow FiO2 Mean Ox Delivery Rate 11/23 627 97.7 61 18 124/58 92 Room Air 11/21 2029 98.2 64 18 122/70 96 Room Air 11/22 2023 64 122/70 11/21 1439 97.8 57 22 110/76 96 11/21 1007 64 123/64 Intake & Output 11/22 1600 11/23 799 03 0000 Intake Total 1200 Output Total Balance 1200 Intake, IV 400 Intake, Oral 800 Vital Signs Date Time Temp Pulse Resp B/P B/P Pulse O2 O2 Flow FiO2 Mean Ox Delivery Rate 11/23 627 97.7 61 18 124/58 92 Room Air 11/21 2029 98.2 64 18 122/70 96 Room Air 11/22 2023 64 122/70 11/21 1439 97.8 57 22 110/76 96 11/21 1007 64 123/64 Intake & Output 11/22 1600 11/23 0700 03 0000 Intake Total 1200 Output Total Balance 1200 Intake, IV 400 Intake, Oral 800 Physical Exam General Appearance: alert, awake, confused Current Medications: Current Medications Sig/Angela Start time Last Medication Dose Route Stop Time Status Admin Carvedilol 3.125 MG BID 11/20 2200 AC 11/21 PO 2024 Levothyroxine Sodium 0.075 MG DAILY AC 11/22 0700 AC 11/22 PO 0649 Levothyroxine Sodium 0.112 MG DAILY AC 11/21 0700 DC 11/21 PO 0650 Patient Medication 1 ED ONE ONE 11/21 1030 DC 11/21 Teaching ED 11/21 1031 1137 Sodium Chloride 1,000 ML Q20H 11/21 1700 DC / IV 1709 Sodium Chloride 1,000 ML .Q20H 11/21 1015 DC 11/21 IV 11/22 0430 1136 Sodium Chloride 1,000 ML Q13H 11/20 1400 DC 11/21 IV 0338 Results Pertinent Lab/Kris Results: Laboratory Tests 11/22 11/21 0730 1802 Chemistry Sodium (137 - 145 mmol/L) Pending 142 Potassium (3.5 - 5.1 mmol/L) Pending 3.6 Chloride (98 - 107 mmol/L) Pending 109 H Carbon Dioxide (22 - 30 mmol/L) Pending 21 L Anion Gap (5 - 16) Pending 11 BUN (7 - 17 mg/dL) Pending 45 H Creatinine (0.5 - 1.0 mg/dL) Pending 2.2 H Estimated GFR (>60 ml/min) 21 L BUN/Creatinine Ratio (7 - 25 %) Pending 20.5 TSH Pending Free T4 Pending Coagulation PT Pending INR Pending Hematology CBC w Diff Pending WBC Pending RBC Pending Hgb Pending Hct Pending MCV Pending MCH Pending MCHC Pending RDW Pending Plt Count Pending MPV Pending
[2017-11-22 09:02] LABS: ABSOLUTE BASOPHIL COUNT 0 /CUMM (0.0-0.2); ABSOLUTE EOSINOPHIL COUNT 0.2 /CUMM (0.0-0.7); ABSOLUTE GRANULOCYTE CT 4.1 /CUMM (1.4-6.5); ABSOLUTE LYMPH COUNT 0.9 /CUMM (1.2-3.4); ABSOLUTE MONOCYTE COUNT 0.6 /CUMM (0.10-0.60); BASOPHIL % 0.6 % (0.0-2.0); GRANULOCYTE % 70.6 % (42.2-75.2); HEMATOCRIT 24.4 % (37-47); MEAN CORPUSCULAR HGB CONC 32.9 G/DL (33.0-37.0); MEAN CORPUSCULAR VOLUME 97.3 FL (81.0-99.0); MEAN PLATELET VOLUME 12.7 FL (7.4-10.4); RBC DISTRIBUTION WIDTH 16.9 % (11.5-14.5); WHITE BLOOD CELL COUNT 5.8 /CUMM (4.8-10.8)
[2017-11-22 09:04] LABS: PT 21.7 SEC (9.4-12.5)
[2017-11-22 11:23] LABS: PLATELET COUNT 75 /CUMM (130-400)
--- NOTE | 2017-11-22 11:27 | PN- Cardiology ---
Subjective Subjective: She appears comfortable. Sitting out of bed in a chair timoteo radha. Admits to no chest pain or unusual shortness of breath. Objective Vital Signs and I&Os Vital Signs Date Time Temp Pulse Resp B/P B/P Pulse O2 O2 Flow FiO2 Mean Ox Delivery Rate 11/22 1113 Room Air 11/22 0858 61 124/58 11/22 0628 97.7 61 18 124/58 92 Room Air 11/21 2030 98.2 64 18 122/70 96 Room Air 11/21 2024 64 122/70 11/21 1439 97.8 57 22 110/76 96 Intake & Output 11/22 1600 11/22 0811/22 0000 11/21 1600 11/22 0700 11/21 0000 Intake Total 450 1200 1580 675 800 Output Total 400 Balance 450 1200 1180 675 800 Intake, Blood 350 Product Intake, IV 400 400 600 275 Intake, Oral 50 800 980 50 800 Number 0 2 0 Bowel Movements Output, Urine 400 Physical Exam: Exam patient appeared comfortable. Head normocephalic atraumatic Eyes sclera anicteric conjunctiva showed no pallor X almost were normal Neck no jugular venous distention no thyroid masses no palpable nodes Chest lungs were clear bilaterally Heart irregular rhythm with a ventricular rate around 80 1/6 systolic murmur Abdomen soft no organomegaly bowel sounds normal, nontender extremities no clubbing cyanosis or edema. Neurological no gross motor or sensory deficits. Current Medications: Current Medications Sig/Angela Start time Last Medication Dose Route Stop Time Status Admin Carvedilol 3.125 MG BID 11/20 2200 AC 11/22 PO 0858 Levothyroxine Sodium 0.075 MG DAILY AC 11/22 699 AC 11/22 PO 0649 Levothyroxine Sodium 0.112 MG DAILY AC 11/21 0700 DC 11/21 PO 0650 Potassium Chloride 40 MEQ ONCE ONE 11/22 0930 DC PO 11/22 0931 Sodium Chloride 1,000 ML Q20H 11/21 1700 DC / IV 1709 Sodium Chloride 1,000 ML .Q20H 11/21 1015 DC / IV 11/22 0430 1136 Results Last 48 Hrs of Labs/Mics: Laboratory Tests 11/22/17 0730: Anion Gap 8, Estimated GFR 27 L, BUN/Creatinine Ratio 22.2, Troponin I 0.02, TSH 50.700 H, Free T4 0.13 L, PT 21.7 H, INR 1.98 H, CBC w Diff Pending, WBC Pending, RBC Pending, Hgb Pending, Hct Pending, MCV Pending, MCH Pending, MCHC Pending, RDW Pending, Plt Count Pending, MPV Pending 11/21/17 1802: Anion Gap 11, Estimated GFR 21 L, BUN/Creatinine Ratio 20.5 11/21/17 0704: Anion Gap 10, Estimated GFR 21 L, BUN/Creatinine Ratio 19.5, Troponin I 0.03, Triglycerides 164 H, Cholesterol 146, LDL Cholesterol, Calc 78, HDL Cholesterol 36 L, Cholesterol/HDL Ratio 4, TSH &T3 &Free T4 Intrp 51.300 H, CBC w Diff NO MAN DIFF REQ, RBC 2.82 L, MCV 97.0, MCH 32.7 H, MCHC 33.7, RDW 16.7 H, MPV 12.5 H, Gran % 70.1, Lymphocytes % 16.2 L, Monocytes % 12.2 H, Eosinophils % 1.2, Basophils % 0.3, Absolute Granulocytes 5.4, Absolute Lymphocytes 1.2, Absolute Monocytes 0.9 H, Absolute Eosinophils 0.1, Absolute Basophils 0 11/21/17 0358: Lactic Acid 1.3, CBC w Diff NO MAN DIFF REQ, RBC 2.90 L, MCV 96.8, MCH 32.5 H, MCHC 33.6, RDW 16.5 H, MPV 11.9 H, Gran % 70.6, Lymphocytes % 15.9 L, Monocytes % 11.9 H, Eosinophils % 1.1, Basophils % 0.5, Absolute Granulocytes 5.8, Absolute Lymphocytes 1.3, Absolute Monocytes 1.0 H, Absolute Eosinophils 0.1, Absolute Basophils 0, Ref Lab Test Result Pending 11/20/17 195: Lactic Acid 2.8 H, PT 49.4 *H, INR 4.46 *H, APTT 85 H, CBC w Diff NO MAN DIFF REQ, RBC 2.33 L, MCV 101.8 H, MCH 33.2 H, MCHC 32.7 L, RDW 14.5, MPV 12.7 H , Gran % 75.4 H, Lymphocytes % 13.3 L, Monocytes % 10.5 H, Eosinophils % 0.3, Basophils % 0.5, Absolute Granulocytes 5.9, Absolute Lymphocytes 1.0 L, Absolute Monocytes 0.8 H, Absolute Eosinophils 0, Absolute Basophils 0 11/20/17 1610: Lactic Acid 3.0 H, CBC w Diff NO MAN DIFF REQ, RBC 2.60 L, MCV 100.4 H, MCH 33.2 H, MCHC 33.1, RDW 14.4, MPV 12.5 H, Gran % 77.4 H, Lymphocytes % 12.6 L , Monocytes % 9.6 H, Eosinophils % 0.3, Basophils % 0.1, Absolute Granulocytes 6.4, Absolute Lymphocytes 1.1 L, Absolute Monocytes 0.8 H, Absolute Eosinophils 0, Absolute Basophils 0 11/20/17 1330: Urinalysis LIGHT H, Urine Color YEL, Urine Clarity HAZY H, Urine pH 6.0, Ur Specific [place] 1.025, Urine Protein 30 H, Urine Ketones TRACE H, Urine Nitrite NEG, Urine Bilirubin NEG, Urine Urobilinogen 0.2, Ur Leukocyte Esterase NEG, Ur Microscopic SEDIMENT EXAMINED, Urine WBC 5-10 H, Ur Epithelial Cells MANY H, Urine Bacteria MANY H, Urine Mucus MOD H, Urine Hemoglobin NEG, Urine Glucose NEG 11/20/17 1200: pH 7.42, pCO2 30 L, pO2 77 L, HCO3 19 L, ABG O2 Sat (Measured) 93.0 L, Carboxyhemoglobin 0.6 L, O2 Concentration % RA, Phlebotomy Draw Site RIGHT RADIAL Assessment/Plan Assessment/Plan In summary this 82-year-old female was admitted with the following problems #1 rectus sheath hematoma. A she was on anticoagulation with Pradaxa. Renal functions had change in the interim. At the moment a hemoglobin is stable and increasing, and she is off oral anticoagulation #2. Persistent atrial fibrillation rate control on beta blockers #3. Dementia #4. Hypothyroidism Continue present treatment and that treat hypothyroidism. Hold off on oral anticoagulation until hematocrit is stable and renal function stabilized. Thereafter decision will be made whether to start warfarin or another novel anticoagulants. Continue telemetry? Not applicable
[2017-11-22 14:04] VITALS: BP 113/63
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
[2017-11-22 22:00] VITALS: BP 139/66
[2017-11-23 06:47] VITALS: BP 144/80
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
[2017-11-23] MEDS ORDERED: SYNTHROID75 MCG PO (08:07)
--- NOTE | 2017-11-23 08:09 | Patient Discharge Instructions ---
Discharge Instructions General Discharge Information You were seen/treated for: altred mental status profound hypothyroidism Special Instructions: Please follow up with your PCP in a week Please follow up with in 1-2 weeks after discharge Please get repeat TSH, free T4 on 11/26/2017 Please follow up with cardiology in 1 week Please follow up with cardiology in 1 week Please follow up with vascular surgery in 2-4 weeks Diet Continue normal diet: Yes Activity Full Activity/No Limits: Yes Activity Self Limited: Yes Acute Coronary Syndrome Inclusion Criteria At DC or during hospital stay patient has or had the following: ACS DIAGNOSIS No Discharge Core Measures Meds if any: Prescribed or Continued at Discharge Meds if any: NOT Prescribed or Continued at Discharge Congestive Heart Failure Inclusion Criteria At DC or during hospital stay patient has or had the following: CHF DIAGNOSIS No Discharge Core Measures Meds if any: Prescribed or Continued at Discharge Meds if any: NOT Prescribed or Continued at Discharge Cerebrovascular accident Inclusion Criteria At DC or during hospital stay patient has or had the following: CVA/TIA Diagnosis No Discharge Core Measures Meds if any: Prescribed or Continued at Discharge Meds if any: NOT Prescribed or Continued at Discharge Venous thromboembolism Inclusion Criteria VTE Diagnosis No VTE Type NONE VTE Confirmed by (Test) NONE Discharge Core Measures - Per Current guidelines, there needs to be overlap - treatment for the first 5 days of Warfarin therapy. - If discharged on Warfarin prior to 5 days of - overlap therapy, the patient will need to be - assessed for post discharge needs including - *Post discharge parental anticoagulation - *Warfarin and/or parental anticoagulation education - *Follow up date to check INR post discharge At least 5 days overlap therapy as Inpatient No Meds if any: Prescribed or Continued at Discharge Note: Overlap Therapy is Warfarin and Anticoagulant Meds if any: NOT Prescribed or Continued at Discharge
--- NOTE | 2017-11-23 08:13 | PN- Endocrinology ---
Assessment/Plan Endoscopy Assessment: The patient feels better today. She is alert and she is oriented to person and place. She is asking why she is in the hospital. The patient presented with severe hypothyroidism. It seems she was not taking her thyroid medicine at home. At the present time she is on levothyroxine 75 mcg daily. Her TSH is coming down. Today's labs are pending. The patient is improving on thyroid hormone. Plan: Continue the present dose of thyroid hormone. Await today's labs. Patient has a large abdominal wall hematoma. It appears to be stabilizing. Decision has to be made as to when to restart some anticoagulation as per cardiology. In addition the patient has an abdominal aortic aneurysm. Consider vascular consult. Objective Last 24 Hrs of Vital Signs/I&O Vital Signs Date Time Temp Pulse Resp B/P B/P Pulse O2 O2 Flow FiO2 Mean Ox Delivery Rate 11/23 0647 97.9 55 18 144/80 95 Room Air 03/09 0000 95 Room Air 03/ 2205 98.0 56 18 139/66 03/08 2200 98.0 56 18 139/66 95 Room Air 03/ 1404 98.1 58 20 113/63 98 03/08 1113 Room Air 03/ 0858 61 124/58 Intake & Output 11/23 1600 11/23 0800 03/ 0000 Intake Total 930 Output Total 100 Balance -100 930 Intake, IV 450 Intake, Oral 480 Output, Urine 100 Vital Signs Date Time Temp Pulse Resp B/P B/P Pulse O2 O2 Flow FiO2 Mean Ox Delivery Rate 11/23 0547 97.9 55 18 144/80 95 Room Air 03/09 0000 95 Room Air 03/ 2205 98.0 56 18 139/66 03/08 2200 98.0 56 18 139/66 95 Room Air 03/08 1404 98.1 58 20 113/63 98 03/08 1113 Room Air 03/ 0858 61 124/58 Intake & Output 11/23 1600 11/23 0800 03/09 0000 Intake Total 930 Output Total 100 Balance -100 930 Intake, IV 450 Intake, Oral 480 Output, Urine 100 Physical Exam General Appearance: alert, awake, comfortable Head: normal appearance Respiratory: normal breath sounds Cardiovascular: regular rate/rhythm Abdomen: normal bowel sounds Extremities: no edema Current Medications: Current Medications Sig/Angela Start time Last Medication Dose Route Stop Time Status Admin Carvedilol 3.125 MG BID 11/20 2199 AC 11/22 PO 220 Levothyroxine Sodium 0.075 MG DAILY AC 11/22 699 AC 11/23 PO 0635 Potassium Chloride 40 MEQ ONCE ONE 11/22 929 DC 11/22 PO 11/22 0831 1339 Sodium Chloride 1,000 ML .[id number] 11/22 1600 DC 11/22 IV 11/23 0519 1723 Current Medications Sig/Angela Start time Last Medication Dose Route Stop Time Status Admin Carvedilol 3.125 MG BID 11/20 2199 AC 11/22 PO 220 Levothyroxine Sodium 0.075 MG DAILY AC 11/22 699 AC 11/23 PO 0635 Potassium Chloride 40 MEQ ONCE ONE 11/22 929 DC 11/22 PO 11/22 0931 1339 Sodium Chloride 1,000 ML .[id number] 11/22 1600 DC 11/22 IV 11/23 0519 1723 Results Pertinent Lab/Kris Results: Laboratory Tests 11/24 743 Chemistry Sodium Pending Potassium Pending Chloride Pending Carbon Dioxide Pending Anion Gap Pending BUN Pending Creatinine Pending BUN/Creatinine Ratio Pending TSH Pending Free T4 Pending Hematology CBC w Diff Pending WBC Pending RBC Pending Hgb Pending Hct Pending MCV Pending MCH Pending MCHC Pending RDW Pending Plt Count Pending MPV Pending
[2017-11-23 09:06] LABS: ABSOLUTE BASOPHIL COUNT 0 /CUMM (0.0-0.2); ABSOLUTE EOSINOPHIL COUNT 0.2 /CUMM (0.0-0.7); ABSOLUTE GRANULOCYTE CT 3.4 /CUMM (1.4-6.5); ABSOLUTE MONOCYTE COUNT 0.6 /CUMM (0.10-0.60); BASOPHIL % 0.8 % (0.0-2.0); EOSINOPHIL % 3.2 % (0-5); GRANULOCYTE % 64.6 % (42.2-75.2); HEMATOCRIT 24.9 % (37-47); MEAN CORPUSCULAR HGB 32.7 PG (27.0-31.0); MEAN CORPUSCULAR HGB CONC 33.4 G/DL (33.0-37.0); MEAN CORPUSCULAR VOLUME 97.9 FL (81.0-99.0); MEAN PLATELET VOLUME 12.4 FL (7.4-10.4); RBC DISTRIBUTION WIDTH 16.7 % (11.5-14.5); RED BLOOD CELL CT 2.55 /CUMM (4.20-5.40); WHITE BLOOD CELL COUNT 5.3 /CUMM (4.8-10.8)
[2017-11-23 10:26] LABS: PLATELET COUNT 83 /CUMM (130-400)
[2017-11-23 11:47] VITALS: BP 148/80
[2017-11-23 14:03] VITALS: BP 110/80
[2017-11-23 23:14] VITALS: BP 144/82
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
[2017-11-24 06:47] VITALS: BP 150/86
--- NOTE | 2017-11-24 11:45 | PN- Endocrinology ---
Assessment/Plan Endoscopy Assessment: The patient presented with severe hypothyroidism. She was not taking her thyroid medicine at home. At the present time she is on levothyroxine 75 mcg daily. Repeat TFT done on 11/23/2017 showed TSH 54.6 and free T4 0.19. As per nurse, [facility] Plan: 1. continue Levothyroxine 75 mcg daily for now; 2. repeat TSH, free T4 on 11/26/2017 to look for a trend. Please forward copy to office for review and then her thyroid medication will be adjusted accordingly. 3. f/u in office with Dr. Rodgers after discharge. Subjective Subjective: She feels better and would like to go home. Objective Last 24 Hrs of Vital Signs/I&O Vital Signs Date Time Temp Pulse Resp B/P B/P Pulse O2 O2 Flow FiO2 Mean Ox Delivery Rate 11/24 0939 63 150/86 11/24 0800 Room Air 11/24 0647 98.0 63 16 150/86 95 Room Air 11/23 2314 98.1 74 16 144/82 94 Room Air 11/23 2145 98.1 74 16 144/82 11/23 1403 97.8 73 20 110/80 93 Room Air 11/23 1210 60 148/80 11/23 1147 97.8 60 18 148/80 94 Room Air Intake & Output 11/24 1600 11/24 0800 11/24 0000 Intake Total 200 600 Output Total 300 Balance -100 600 Intake, Oral 200 600 Output, Urine 300
[2017-11-24 14:19] VITALS: BP 153/71
[2017-11-24 14:23] VITALS: BP 153/71
[2017-11-24 14:49] VITALS: BP 153/71
== END 2017-11-24 16:30 | DRG 644 ==
LOC: ERH 09:42 → 2NA 12:30 → ERHI 12:30 → ENRESERV 13:04 → ENTRNSPT 14:01 → 2NA 14:02 → EDTRNSPTSTS 14:03 → EDTRNSPT 14:03 → 2NA 14:50 → CMPTRNSPT 15:03 → ENPENDDIS 11-24 13:34 → 2NA 11-24 16:30
PROVIDERS: Emergency Medicine; Internal Medicine; Student in an Organized Health Care Education/Training Program
PROC: 30233N1 Transfusion of Nonautologous Red Blood Cells into Peripheral Vein, Percutaneous Approach (ICD-10-PCS; principal; 2017-11-20)
DX: E03.2 Hypothyroidism due to medicaments and other exogenous substances (principal); D62 Acute posthemorrhagic anemia; N17.9 Acute kidney failure, unspecified; E87.2 Acidosis; F05 Delirium due to known physiological condition; I48.1 Persistent atrial fibrillation; T68.XXXA Hypothermia, initial encounter; S30.1XXA Contusion of abdominal wall, initial encounter; Z79.01 Long term (current) use of anticoagulants; I12.9 Hypertensive chronic kidney disease with stage 1 through stage 4 chronic kidney disease, or unspecified chronic kidney disease; N18.9 Chronic kidney disease, unspecified; T38.1X6A Underdosing of thyroid hormones and substitutes, initial encounter; Z91.130 Patient's unintentional underdosing of medication regimen due to age-related debility; Y92.009 Unspecified place in unspecified non-institutional (private) residence as the place of occurrence of the external cause; F17.200 Nicotine dependence, unspecified, uncomplicated; F03.90 Unspecified dementia, unspecified severity, without behavioral disturbance, psychotic disturbance, mood disturbance, and anxiety
CPT/HCPCS: 2NASP; 84255; 36592; 71045; 74176; 81001; 82436; 86920; 87040; 87086; 93005; 93010; 97112-GO; 97116-GO; 97162-GP; 97166-GO; 97530-GO; P9016